=== PATIENT | female | born 1940 | race Caucasian/White ===

== ENCOUNTER → 2018-03-24 12:28 | Outpatient (CLI) | payer OTHER, SELFPAY ==
--- NOTE | 2018-03-24 | DI.MG.S_ITS ---
BILATERAL DIGITAL SCREENING MAMMOGRAM 3D/2D WITH CAD: 03/24/2018 CLINICAL: Routine screening. Comparison is made to exams dated: 02/01/2017 mammogram, 01/28/2016 mammogram, and 01/24/2015 mammogram - [facility]. The tissue of both breasts is heterogeneously dense. This may lower the sensitivity of mammography. Current study was also evaluated with a Computer Aided Detection (CAD) system. There are benign vascular calcifications and calcifications in both breasts. No significant masses, calcifications, or other findings are seen in either breast. There has been no significant interval change. IMPRESSION: BENIGN There is no mammographic evidence of malignancy. A 1 year screening mammogram is recommended. This exam was interpreted at Station ID: [id number]. NOTE: For mammograms, a report in lay terms will be sent to the patient. Approximately 15% of breast malignancies will not be visualized mammographically. In the management of a palpable breast mass, a negative mammogram must not discourage biopsy of a clinically suspicious lesion. Electronically Signed By: Gregoria cowart/eris:03/24/2018 14:53:12 letter sent: Normal Exam ACR BI-RADS Category 2: Benign Finding(s) 3342F
== END ==
PROVIDERS: Visit Provider Student in an Organized Health Care Education/Training Program
DX: Z12.31 Encounter for screening mammogram for malignant neoplasm of breast (principal); Z78.0 Asymptomatic menopausal state; E07.9 Disorder of thyroid, unspecified; Z82.62 Family history of osteoporosis; Z90.722 Acquired absence of ovaries, bilateral
CPT/HCPCS: 77063; 77067; 77080

== ENCOUNTER 2018-07-18 07:14 | Day surgery (SDC) | payer OTHER, SELFPAY ==
--- NOTE | 2018-07-18 | PATH_ITS ---
[facility] Accession Number: [id number] . 01 Material submitted: . PART A: TRANSVERSE COLON POLYP AT 65CM PART B: SIGMOID COLON POLYP AT 18CM PART C: RECTAL POLYP AT 12CM . 02 Diagnosis: A. Transverse Colon Polyp at 65 cm: Tubular adenoma. . B. Sigmoid Colon Polyp at 18 cm: Hyperplastic polyp. . C. Rectal Polyp at 12 cm: Hyperplastic polyp. MRV/07/19/2018 . 02 Electronically signed: . Calvin Alvarez MD, PhD, Pathologist NPI- [id number] . 01 Gross description: . Received three formalin-filled containers each labeled with the patient's name. . A. In a container labeled transverse colon polyp at 65 cm, the specimen consists of two 0.1 to 0.3 cm portions of tissue. Entirely submitted in cassette A. B. In a container labeled sigmoid polyp at 18 cm, the specimen consists of two 0.2 to 0.3 cm portions of tissue. Entirely submitted in cassette B. C. In a container labeled rectal polyp at 12 cm, the specimen consists of two 0.1 to 0.3 cm portions of tissue. Entirely submitted in cassette C. ([facility]:[id number]) /[facility] . 02 Pathologist provided ICD-10: D12.3, K62.1 . 02 CPT . 245778, 766418, 690040 Performed at: 01 [facility] [address], [place], [place] [id number] MD Eduard Marin MD Phone: [phone] Performed at: [facility] [address] [place], [place] [id number] MD Michelle Chakraborty MD Phone: [phone]
[2018-07-18 08:04] VITALS: BP 162/83; PULSE 81; RESP 20; TEMP 36.9; O2SAT 98; BMI 25.7
[2018-07-18] MEDS: SODIUM CHLORIDE 0.9% 1,000 ML 200 ML IV (08:10)
[2018-07-18] MEDS: ONDANSETRON 4 MG/2 ML INJ IV (08:15)
--- NOTE | 2018-07-18 08:20 | PM.HP.1 ---
History of Present Illness Date Patient Seen: 07/18/18 Time Patient Seen: 08:20 Chief complaint: colonoscopy 16130 Narrative: 77-year-old female with personal history of colon polyps who presents for colorectal screening. It has been over 5 years since her last examination. On further history today she denies any current gastrointestinal symptoms. No nausea, vomiting, loss of appetite, unexplained weight loss, abdominal pain, change in bowel habits, diarrhea, constipation, melena, hematochezia, or bright red blood per rectum. Patient History Medical History Anxiety (Acute) History of hysterectomy (Acute) Hyperlipidemia (Acute) Hypertension (Acute) Hypothyroidism (Acute) Osteoarthritis (Acute) Personal history of colonic polyps (Acute) Type 2 diabetes mellitus (Acute) Surgical History History of colonoscopy (Acute) History of foot surgery (Acute) History of tonsillectomy (Acute) Family & Social History Family History: Reviewed 07/18/18 by Gianfranco Mitchell MD Social History: household members spouse Meds Home Medications Medication Instructions Recorded Confirmed Type alprazolam 0.5 mg PO BID PRN 07/18/18 07/18/18 History levothyroxine 25 mcg PO DAILY 07/18/18 07/18/18 History losartan-hydrochlorothiazide 1 tab PO DAILY 07/18/18 07/18/18 History metformin 500 mg PO BID 07/18/18 07/18/18 History metoprolol succinate 25 mg PO DAILY 07/18/18 07/18/18 History rosuvastatin 40 mg PO DAILY 07/18/18 07/18/18 History Allergies Allergy/AdvReac Type Severity Reaction Status Date / Time codeine AdvReac Intermediate Agitated Verified 07/18/18 07:59 Review of Systems Review of Systems Of note, all of her medications are reviewed and placed on the chart per nursing staff. All systems reviewed & are unremarkable except as noted in HPI and below Exam Vital Signs (past 8 hours): - 07/18/18 08:04 Temperature 98.5 F Pulse Rate 81 Respiratory Rate 20 Blood Pressure 162/83 H Pulse Oximetry 98 Oxygen Delivery Method Room Air Narrative Exam Narrative: Well-nourished well-developed female in no acute distress. Alert oriented x3 Sclera nonicteric Regular rate rhythm Abdomen soft, nondistended, nontender Extremities show no clubbing or cyanosis Objective Labs Labs: No recent laboratory or radiographic studies for review Assessment & Plan Plan: Assessment/Plan Narrative: 77-year-old female with personal history of colon polyps requiring surveillance for such. Colonoscopy is recommended. Technical details of the procedure were explained. Risks, benefits, alternatives were discussed. Risks including but not limited to sedation, aspiration, bleeding, pain, missed lesion, incomplete examination, need for further radiographic studies, colonic perforation, need for major abdominal surgery, and all attendant risks of major surgery were discussed in detail. All questions were answered to her satisfaction, and she voiced understanding. Consent was placed on the chart. We will proceed as above.
--- NOTE | 2018-07-18 08:25 | PM.PREOP ---
Pre-operative Note Interval Note History & Physical reviewed/Exam performed by Physician: Yes Changes to H&P: No H&P completed within 30 days and has changed as indicated here:: Patient seen and examined today. History and physical examination dictated and placed on the chart today. Obviously there have been no changes in the last 10 min. Proceed with colonoscopy today as planned. ASA Class (for procedural sedation): II
[2018-07-18] MEDS: MIDAZOLAM 5 MG/5 ML VIAL IV (08:31)
[2018-07-18] MEDS: fentaNYL 250 MCG/5 ML INJ IV (08:32)
--- NOTE | 2018-07-18 08:53 | PM.OP.ENDO ---
Operative Date/Time/Diagnoses Date of procedure: 07/18/18 Time of procedure: 08:53 Pre-op diagnosis: Personal history of colon polyps Post-op diagnosis: other (Diverticulosis and multiple colon polyps) Procedure & Clinicians Study performed: 1. Sedation per surgeon 2. Colonoscopy with cold forceps polypectomies Same procedure as scheduled: Yes Indications: 77-year-old female with personal history of colon polyps requiring colorectal surveillance. Colonoscopy is currently recommended. Surgeon: Gianfranco Mitchell Procedure Notes SCOAP/Timeout: Yes Procedure in detail: After obtaining informed consent, the patient was brought to the GI suite and placed in the left lateral decubitus position on the examination table. After placement of appropriate monitors, the patient was given incremental doses of Versed and Fentanyl until an appropriate level of sedation was achieved. A time out was held per SCOAP protocol. A digital rectal examination was performed and did not reveal any masses or obstructing lesions. The colonoscope was gently passed into the patient's anus and the entire colon navigated to the level of the cecum with minimal difficulty. Once in the cecum, the scope was withdrawn being sure to go before and beyond all mucosal folds and prominences and get an excellent examination. The findings are noted above. At the level of the rectal vault, the scope was retroflexed and the internal anal canal was examined. The scope was straightened and air aspirated from the colon. The instrument was removed from the patient's body and the procedure was concluded. The patient was allowed to awaken from sedation without difficulty and taken to the post-anesthesia care unit in good condition. Scope withdrawal time: 8:43 min Sedation minutes: 26 Findings: diverticulosis and polyp Specimen(s): other (1. Transverse colon polyp at 65 cm 2. Sigmoid colon polyp at 18 cm 3. Rectal polyp at 12 cm) Complications: none Recommendations: Colonscopy in 5 years, High fiber diet and Will call with biopsy results Plan for aftercare: 1. Discharge home Follow up: as needed Disposition: PACU
[2018-07-18 08:58] VITALS: BP 127/64; PULSE 74; RESP 15; TEMP 36.6; O2SAT 97
[2018-07-18 09:05] VITALS: BP 117/66; PULSE 68; RESP 16; O2SAT 97
[2018-07-18 09:19] VITALS: BP 129/64; PULSE 66; RESP 16; TEMP 36.1; O2SAT 99
== END 2018-07-18 09:32 | disposition home or self-care (01) ==
PROVIDERS: PCP Student in an Organized Health Care Education/Training Program; Visit Provider Surgery
PROC: 0DJD8ZZ Inspection of Lower Intestinal Tract, Via Natural or Artificial Opening Endoscopic (ICD-10-PCS; CPT 45378; principal; 2018-07-18 08:45)
DX: Z86.010 Personal history of colon polyps (principal); K57.30 Diverticulosis of large intestine without perforation or abscess without bleeding; F41.9 Anxiety disorder, unspecified; E78.5 Hyperlipidemia, unspecified; I10 Essential (primary) hypertension; E03.9 Hypothyroidism, unspecified; E11.9 Type 2 diabetes mellitus without complications; Z79.84 Long term (current) use of oral hypoglycemic drugs; D12.3 Benign neoplasm of transverse colon; K62.1 Rectal polyp; D12.5 Benign neoplasm of sigmoid colon
CPT/HCPCS: 45380; 99152; 99153; J2250; J2405; J3010

== ENCOUNTER → 2018-08-10 13:11 | Outpatient (CLI) | payer OTHER, SELFPAY ==
[2018-08-10 13:28] LABS: Add Manual Diff / Slide Review NO; Basophils Absolute Auto 100 /uL (0-100); Basophils Percent Auto 0.9 % (0-2); Eosinophils Absolute Auto 200 /uL (0-450); Eosinophils Percent Auto 2.3 % (2-4); Hematocrit 40.1 % (36-46); Hemoglobin 13.6 g/dL (12.0-16.0); Lymphocytes Absolute Auto 1400 /uL (1100-4500); Lymphocytes Percent Auto 20.9 % (25-40); Mean Corpuscular HGB Conc 33.8 % (30-36); Mean Corpuscular Hemoglobin 29.3 PG (26-34); Mean Corpuscular Volume 86.6 fL (80-100); Monocytes Absolute Auto 500 /uL (0-900); Monocytes Percent Auto 7.5 % (3-14); Neutrophils Absolute Auto 4600 /uL (1500-7000); Neutrophils Percent Auto 68.4 % (50-75); Platelet Count 221 X10^3/uL (150-400); Red Blood Cell Count 4.63 X10^6/uL (4.0-5.2); Red Cell Distribution Width 14.9 % (11.6-14.8); White Blood Cell Count 6.7 X10^3/uL (4.5-11.0)
[2018-08-10 13:49] LABS: Alanine Aminotransferase 31 IU/L (9-52); Albumin 4.9 g/dL (3.5-5.0); Albumin Globulin Ratio 1.4 (1.0-2.8); Alkaline Phosphatase 47 U/L (38-126); Aspartate Aminotransferase 38 IU/L (14-36); BUN Creatinine Ratio 27.5 (6-22); Bilirubin Total 0.4 mg/dL (0.2-1.3); Blood Urea Nitrogen 22 mg/dL (7-17); Calcium 10.5 mg/dL (8.4-10.2); Carbon Dioxide 28 mmol/L (22-32); Chloride 95 mmol/L (98-107); Estimated Glomerular Filt Rate > 60.0 mL/min (>60); Globulin 3.5 g/dL (1.7-4.1); Glucose 123 mg/dL (80-110); HEMOLYSIS 25 (0-50); Potassium 4.2 mmol/L (3.4-5.1); Sodium 137 mmol/L (137-145); Total Protein 8.4 g/dL (6.3-8.2)
[2018-08-10 13:51] LABS: Hemoglobin A1C% w Est Avg Glu 5.7 % (4.0-6.0)
== END ==
PROVIDERS: PCP Student in an Organized Health Care Education/Training Program; Visit Provider Student in an Organized Health Care Education/Training Program
DX: I10 Essential (primary) hypertension (principal); E78.5 Hyperlipidemia, unspecified; E03.9 Hypothyroidism, unspecified; E11.9 Type 2 diabetes mellitus without complications
CPT/HCPCS: 36415; 80053; 83036; 85025

== ENCOUNTER 2018-09-11 06:39 | Emergency (ER) | payer OTHER, SELFPAY ==
[2018-09-11] VITALS (7 sets, daily range): BP systolic 115–148; BP diastolic 55–63; PULSE 63–74; RESP 15–17; TEMP 37.1; O2SAT 97–99; BMI 26.1
--- NOTE | 2018-09-11 06:46 | DI.CT.S_ITS ---
PROCEDURE: CT HEAD/BRAIN WO CON INDICATIONS: fall with head injury, +LOC, large lac TECHNIQUE: Noncontrast 4.5 mm thick angled axial sections acquired from the foramen magnum to the vertex, with coronal and sagittal reformats. For radiation dose reduction, the following was used: automated exposure control, adjustment of mA and/or kV according to patient size. COMPARISON: None. FINDINGS: Image quality: Excellent. CSF spaces: Basal cisterns are patent. No extra-axial fluid collections. Ventricles are normal in size and shape. Brain: No midline shift. No intracranial masses or hemorrhage. Torres-white matter interface is normal. There is age-related fine loss and mild small vessel ischemic change. Skull and face: Calvarium and visualized facial bones are intact, without suspicious lesions. No displaced skull fractures. Right frontotemporal skin judy. Sinuses: Visualized sinuses and mastoids are clear. IMPRESSION: 1. No evidence of acute stroke, hemorrhage, or mass. 2. Mild small vessel ischemic change. Dictated by: Ming Chery M.D. on 09/11/2018 at 7:31 Approved by: Ming Chery M.D. on 09/11/2018 at 7:34
[2018-09-11 07:15] LABS: Add Manual Diff / Slide Review NO; Basophils Absolute Auto 100 /uL (0-100); Basophils Percent Auto 0.5 % (0-2); Eosinophils Absolute Auto 100 /uL (0-450); Eosinophils Percent Auto 0.9 % (2-4); Hematocrit 39.8 % (36-46); Hemoglobin 13.3 g/dL (12.0-16.0); Lymphocytes Absolute Auto 900 /uL (1100-4500); Lymphocytes Percent Auto 8.2 % (25-40); Mean Corpuscular HGB Conc 33.4 % (30-36); Mean Corpuscular Hemoglobin 29.3 PG (26-34); Mean Corpuscular Volume 87.6 fL (80-100); Monocytes Absolute Auto 500 /uL (0-900); Monocytes Percent Auto 4.8 % (3-14); Neutrophils Absolute Auto 9400 /uL (1500-7000); Neutrophils Percent Auto 85.6 % (50-75); Platelet Count 188 X10^3/uL (150-400); Red Blood Cell Count 4.55 X10^6/uL (4.0-5.2); Red Cell Distribution Width 14.7 % (11.6-14.8)
--- NOTE | 2018-09-11 07:16 | PC.NURSE ---
head laceration was already stapled when I did my assessment.
[2018-09-11 07:28] LABS: BUN Creatinine Ratio 26.3 (6-22); Blood Urea Nitrogen 21 mg/dL (7-17); Calcium 9.8 mg/dL (8.4-10.2); Carbon Dioxide 30 mmol/L (22-32); Chloride 97 mmol/L (98-107); Estimated Glomerular Filt Rate > 60.0 mL/min (>60); Glucose 122 mg/dL (80-110); HEMOLYSIS < 15 (0-50); Potassium 2.9 mmol/L (3.4-5.1); Sodium 135 mmol/L (137-145)
[2018-09-11 07:40] LABS: Troponin I < 0.012 ng/mL (0.01-0.034)
--- NOTE | 2018-09-11 07:49 | PC.NURSE ---
pt needed standby assist only. She reports feeling a little dizzy but was steady on her feet.
[2018-09-11] MEDS: SODIUM CHLORIDE 0.9% 1,000 ML 1000 ML IV (08:39)
--- NOTE | 2018-09-11 09:00 | ED.FALL ---
HPI - Fall General Chief Complaint: Fall Stated Complaint: GLF with laceration to back of head Time Seen by Provider: 09/11/18 07:56 Source: patient Mode of arrival: ambulatory Limitations: no limitations History of Present Illness HPI Narrative: Patient states that she got up this morning to go to the bathroom and noticed that she felt dizzy . Patient qualifies this as being a vertigo-type of sensation more than lightheadedness. She states that she got on the toilet and got up quickly after finishing. Patient states that when she got up she felt very dizzy and next thing she knew, she was on the floor. However, patient states she does not think that she lost consciousness. Patient states she believe she hit her head on the door handle of the bathroom cabinet, and did sustain a laceration. Patient states that she does not have any chest pain or shortness of breath the time. No nausea. No vomiting. Patient does note that she had an episode of diarrhea while lying on the floor, and also states that she has had a couple more episodes since being here in the emergency department. Patient also notes that 2 family members have had a diarrheal illness in the last couple of days and she has been recently exposed to them while they were sick. Patient was ultimately able to get up with assistance and walk again, but EMS was called. Patient states that since the incident, she is no longer felt dizzy, but did feel a little shaky when she defecated here. She denies any visual changes. No focal weakness. Patient does not have a history of vertigo or loss of consciousness. She states she is quite healthy otherwise. No palpitations currently. No recent illnesses. No other complaints at this time. Related Data Home Medications Medication Instructions Recorded Confirmed alprazolam 0.5 mg PO BID PRN 07/18/18 07/18/18 levothyroxine 25 mcg PO DAILY 07/18/18 07/18/18 losartan-hydrochlorothiazide 1 tab PO DAILY 07/18/18 07/18/18 metformin 500 mg PO BID 07/18/18 07/18/18 metoprolol succinate 25 mg PO DAILY 07/18/18 07/18/18 rosuvastatin 40 mg PO DAILY 07/18/18 07/18/18 Allergies Allergy/AdvReac Type Severity Reaction Status Date / Time codeine AdvReac Intermediate Agitated Verified 07/18/18 07:59 Review of Systems Constitutional Denies chills, Denies fever(s), Denies lethargy and Denies weakness Eyes Denies change in vision, Denies eye discharge, Denies irritation and Denies loss of vision ENT Ears, Nose, Mouth, and Throat: Denies change in voice, Reports dizziness, Denies neck pain and Denies sore throat Cardiovascular Denies chest pain, Reports syncope (Near), Denies irregular heart rhythm, Denies lightheadedness, Denies palpitations, Denies dyspnea, Denies dyspnea on exertion and Denies orthopnea Respiratory Denies cough, Denies dyspnea, Denies dyspnea on exertion and Denies wheezing Gastrointestinal Gastrointestinal: Denies abdominal pain, Denies change in bowel habits, Denies diarrhea, Denies nausea and Denies vomiting Genitourinary Denies hematuria, Denies flank pain, Denies urinary incontinence and Denies urinary urgency Musculoskeletal Denies neck pain Integumentary/Breasts Denies pruritus, Denies erythema, Denies rash and Denies wounds Neurologic Denies confusion, Reports dizziness, Reports syncope (Near), Denies loss of vision and Denies weakness Psychiatric Denies anxiety, Denies confusion, Denies depression, Denies homicidal ideation and Denies suicidal ideation Endocrine Denies palpitations Hematologic/Lymphatic Denies easy bruising Allergic/Immunologic Denies wheezing Exam Initial Vital Signs Initial Vital Signs: Vital Signs Temperature 98.7 F 09/11/18 06:42 Pulse Rate 74 09/11/18 06:42 Respiratory Rate 16 09/11/18 06:42 Blood Pressure 143/63 H 09/11/18 06:42 Pulse Oximetry 97 09/11/18 06:42 Const General: cooperative and well developed Nutritional Appearance: well nourished Orientation: alert, awake, oriented x3 and not confused [facility] Head: normocephalic, laceration (Three in a 0.5 cm, bleeding controlled, right parietal area) and No palpable skull fracture Ears: external ears normal Nose: external nose normal and No nasal discharge Face and sinus: sinuses nontender, face symmetric, no sinus tenderness and No dry mucous membranes Mouth: oral mucosae normal and moist mucous membranes Teeth and gingiva: dentition normal Eyes General: appearance normal, both eyes and all related structures Eyelids: eyelids normal Conjunctivae: conjunctivae normal Sclera: sclerae normal Pupils: PERRL EOM: EOM intact bilaterally Neck Neck: normal visual inspection, trachea midline, No lymphadenopathy, No midline deformity and No JVD Lymphatic: No lymphedema Chest Chest: normal inspection of the chest Resp Effort & Inspection: normal respiratory effort, able to speak in complete sentences, no respiratory distress and no use of accessory muscles Auscultation: clear to auscultation bilaterally, no rales, no rhonchi and no wheezes Cardio Rate: regular rate Rhythm: regular rhythm Heart Sounds: no click, no gallops, no murmurs and no rubs Pulses: normal peripheral pulses GI Inspection: non-distended Palpation: soft, no hepatosplenomegaly, No guarding, No pulsatile mass and No tender Auscultation: normal bowel sounds Back/Spine/Pelvis Back: No CVA tenderness Cervical Spine: cervical ROM normal and No pain with cervical ROM Thoracic/Lumbar Spine: thoracic and lumbar spine normal to inspection Skin General: no rashes or lesions noted, No jaundice and No petechiae Neuro General: alert, oriented x3, gait normal and no focal motor deficits Speech: speech normal Extrem General: full ROM, no clubbing, cyanosis or edema, no pedal edema and no calf tenderness Psych Appearance: well kempt Mental Status: mental status grossly normal Attitude: cooperative Thought Content: normal and suicidality Judgment: judgment good [facility] Medical History Anxiety (Acute) History of hysterectomy (Acute) Hyperlipidemia (Acute) Hypertension (Acute) Hypothyroidism (Acute) Osteoarthritis (Acute) Personal history of colonic polyps (Acute) Type 2 diabetes mellitus (Acute) Surgical History History of colonoscopy (Acute) History of foot surgery (Acute) History of tonsillectomy (Acute) Social History household members: spouse Social History household members: spouse Procedures Laceration Repair Laceration 1: Site: scalp Size (cm): 3.5 Description: linear Depth: simple, single layer Local Anesthetic: lidocaine 1% Pre-repair: wound explored, irrigated extensively and deep structures intact Skin layer closed with: judy Number of sutures: 6 Course Course Narrative: Patient was initially seen by Dr. Live Allen and signed out to me, pending re-evaluation and results of workup. I did interview and fully examine the patient. Patient was worked up with labs, including cardiac, EKG, and CT scan, all of which were unremarkable. She was given L of 0.9 normal saline, and reported feeling better in the emergency department. She did not have any further episodes of dizziness. I felt the most likely cause of the patient's symptoms today was the onset of the patient's GI illness, with which she has had number of episodes of diarrhea. We have discussed the need to be aggressive with hydration while she is ill with this. I discussed the potential implications of the symptoms, as well as potential concerns, should patient have further symptoms like this. We have discussed the usual indications for return, as well as the need for follow-up. Patient is doing well in the emergency department, and is stable for discharge home at this time. She is accompanied by her . Orders Ordered: Discontinued Medications Sodium Chloride (Normal Saline 0.9%) 1,000 mls @ 1,000 mls/hr IV BOLUS ONE Stop: 09/11/18 09:36 Last Infusion: 09/11/18 09:47 Dose: 0 mls/hr Admin: 09/11/18 08:39 Dose: 1,000 mls/hr Vital Signs - 8 hr 09/11/18 06:42 09/11/18 07:00 09/11/18 07:45 Temperature 98.7 F Pulse Rate 74 73 72 Respiratory Rate 16 15 17 Blood Pressure 143/63 H Blood Pressure [Right Arm] 135/56 L 142/62 H Pulse Oximetry 97 98 99 09/11/18 08:00 Temperature Pulse Rate 70 Respiratory Rate 17 Blood Pressure Blood Pressure [Right Arm] 148/59 H Pulse Oximetry 98 MDM - Fall Medical Records Attestation: I reviewed the patient's medical records. Lab Data Attestation: I reviewed the patient's lab results. Result diagrams: 09/11/18 07:07 09/11/18 07:07 Lab Results 09/11/18 09/11/18 Range/Units 07:07 07:07 WBC 11.0 (4.5-11.0) X10^3/uL RBC 4.55 (4.0-5.2) X10^6/uL Hgb 13.3 (12.0-16.0) g/dL Hct 39.8 (36-46) % MCV 87.6 (80-100) fL MCH 29.3 (26-34) PG MCHC 33.4 (30-36) % RDW 14.7 (11.6-14.8) % Plt Count 188 (150-400) X10^3/uL Neut % (Auto) 85.6 H (50-75) % Lymph % (Auto) 8.2 L (25-40) % [place] % (Auto) 4.8 (3-14) % Eos % (Auto) 0.9 L (2-4) % Baso % (Auto) 0.5 (0-2) % Neut # (Auto) 9400 H (0169-2522) /uL Lymph # (Auto) 900 L (2291-1927) /uL [place] # (Auto) 500 (0-900) /uL Eos # (Auto) 100 (0-450) /uL Baso # (Auto) 100 (0-100) /uL Sodium 135 L (137-145) mmol/L Potassium 2.9 L (3.4-5.1) mmol/L Chloride 97 L (98-107) mmol/L Carbon Dioxide 30 (22-32) mmol/L BUN 21 H (7-17) mg/dL Creatinine 0.80 (0.52-1.04) mg/dL Estimated GFR > 60.0 (>60) mL/min BUN/Creatinine Ratio 26.3 H (6-22) Glucose 122 H (80-110) mg/dL Calcium 9.8 (8.4-10.2) mg/dL Troponin I < 0.012 (0.01-0.034) ng/mL Imaging Data CT scan - head: Attestation: I personally reviewed and interpreted this imaging study as follows: (No acute pathology) Radiologist's impression: [address] [address] [address] Scan Report Signed Patient: Lidia Alfonso [facility]#: [id number] : 3Acct:[id number] Age/Sex: 78 / FDate of Service: 09/11/18 Loc: ED Accession Number: [id number] Procedure: CT head/brain wo con Ordering Provider: Live Allen D.O. PROCEDURE: CT HEAD/BRAIN WO CON INDICATIONS: fall with head injury, +LOC, large lac TECHNIQUE: Noncontrast 4.5 mm thick angled axial sections acquired from the foramen magnum to the vertex, with coronal and sagittal reformats. For radiation dose reduction, the following was used: automated exposure control, adjustment of mA and/or kV according to patient size. COMPARISON: None. FINDINGS: Image quality: Excellent. CSF spaces: Basal cisterns are patent. No extra-axial fluid collections. Ventricles are normal in size and shape. Brain: No midline shift. No intracranial masses or hemorrhage. Torres-white matter interface is normal. There is age-related fine loss and mild small vessel ischemic change. Skull and face: Calvarium and visualized facial bones are intact, without suspicious lesions. No displaced skull fractures. Right frontotemporal skin judy. Sinuses: Visualized sinuses and mastoids are clear. IMPRESSION: 1. No evidence of acute stroke, hemorrhage, or mass. 2. Mild small vessel ischemic change. Dictated by: Ming Chery M.D. on 09/11/2018 at 7:31 Approved by: Ming Chery M.D. on 09/11/2018 at 7:34 ECG Data Attestation: I personally reviewed and interpreted this ECG as follows: (See below) Interpretation: Twelve lead EKG performed September 11, 2018 at 6:52 a.m., as follows: Regular ventricular rhythm with a rate of 72 beats per minute QRS duration 118 millisecond HI interval 225 millisecond QTC interval [address] T wave changes Interpretation: Sinus rhythm with first-degree AV block and occasional PVCs; moderate intraventricular conduction delay; moderate ST depression; prolonged QT interval; no STEMI; abnormal EKG as interpreted the ED MD Discharge Plan Departure Patient Disposition: Home Clinical Impression: Dizziness Syncope Qualifiers: Syncope type: unspecified Qualified Code(s): R55 - Syncope and collapse CHI (closed head injury) Qualifiers: Encounter type: initial encounter Qualified Code(s): S09.90XA - Unspecified injury of head, initial encounter Diarrhea Qualifiers: Diarrhea type: unspecified type Qualified Code(s): R19.7 - Diarrhea, unspecified Discharge Date/Time: 09/11/18 09:47 Interventions: ED Discharge Assessment Last Done: 09/11/18 09:46 Instructions: DI for Syncope in Adults (Fainting), DI for Diarrhea and Traveler's Diarrhea -- Adult, DI for Closed Head Injury, DI for Dizziness-Nonvertigo Prescriptions: No Action metformin 500 mg Tablet 500 mg PO BID RF: 0 levothyroxine 25 mcg Tablet 25 mcg PO DAILY RF: 0 losartan-hydrochlorothiazide 100-25 mg Tablet 1 tab PO DAILY RF: 0 alprazolam 0.5 mg Tablet 0.5 mg PO BID PRN (Reason: Anxiety) RF: 0 rosuvastatin 40 mg Tablet 40 mg PO DAILY RF: 0 metoprolol succinate 25 mg CapRamirez,Er 24hr Dose Pack 25 mg PO DAILY RF: 0 Referrals: Lo Hall PA-C [Primary Care Provider] -
--- NOTE | 2018-09-11 09:09 | ED_ITS ---
HPI - Fall General Chief Complaint: Fall Stated Complaint: GLF with laceration to back of head Time Seen by Provider: 09/11/18 07:56 Source: patient Mode of arrival: ambulatory Limitations: no limitations History of Present Illness HPI Narrative: Patient states that she got up this morning to go to the bathroom and noticed that she felt dizzy . Patient qualifies this as being a vertigo- type of sensation more than lightheadedness. She states that she got on the toilet and got up quickly after finishing. Patient states that when she got up she felt very dizzy and next thing she knew, she was on the floor. However, patient states she does not think that she lost consciousness. Patient states she believe she hit her head on the door handle of the bathroom cabinet, and did sustain a laceration. Patient states that she does not have any chest pain or shortness of breath the time. No nausea. No vomiting. Patient does note that she had an episode of diarrhea while lying on the floor, and also states that she has had a couple more episodes since being here in the emergency department. Patient also notes that 2 family members have had a diarrheal illness in the last couple of days and she has been recently exposed to them while they were sick. Patient was ultimately able to get up with assistance and walk again, but EMS was called. Patient states that since the incident, she is no longer felt dizzy, but did feel a little shaky when she defecated here. She denies any visual changes. No focal weakness. Patient does not have a history of vertigo or loss of consciousness. She states she is quite healthy otherwise. No palpitations currently. No recent illnesses. No other complaints at this time. Related Data Home Medications Medication Instructions Recorded Confirmed alprazolam 0.5 mg PO BID PRN 07/18/18 07/18/18 levothyroxine 25 mcg PO DAILY 07/18/18 07/18/18 losartan-hydrochlorothiazide 1 tab PO DAILY 07/18/18 07/18/18 metformin 500 mg PO BID 07/18/18 07/18/18 metoprolol succinate 25 mg PO DAILY 07/18/18 07/18/18 rosuvastatin 40 mg PO DAILY 07/18/18 07/18/18 Allergies Allergy/AdvReac Type Severity Reaction Status Date / Time codeine AdvReac Intermediate Agitated Verified 07/18/18 07:59 Review of Systems Constitutional Denies chills, Denies fever(s), Denies lethargy and Denies weakness Eyes Denies change in vision, Denies eye discharge, Denies irritation and Denies loss of vision ENT Ears, Nose, Mouth, and Throat: Denies change in voice, Reports dizziness, Denies neck pain and Denies sore throat Cardiovascular Denies chest pain, Reports syncope (Near), Denies irregular heart rhythm, Denies lightheadedness, Denies palpitations, Denies dyspnea, Denies dyspnea on exertion and Denies orthopnea Respiratory Denies cough, Denies dyspnea, Denies dyspnea on exertion and Denies wheezing Gastrointestinal Gastrointestinal: Denies abdominal pain, Denies change in bowel habits, Denies diarrhea, Denies nausea and Denies vomiting Genitourinary Denies hematuria, Denies flank pain, Denies urinary incontinence and Denies urinary urgency Musculoskeletal Denies neck pain Integumentary/Breasts Denies pruritus, Denies erythema, Denies rash and Denies wounds Neurologic Denies confusion, Reports dizziness, Reports syncope (Near), Denies loss of vision and Denies weakness Psychiatric Denies anxiety, Denies confusion, Denies depression, Denies homicidal ideation and Denies suicidal ideation Endocrine Denies palpitations Hematologic/Lymphatic Denies easy bruising Allergic/Immunologic Denies wheezing Exam Initial Vital Signs Initial Vital Signs: Vital Signs Temperature 98.7 F 09/11/18 06:42 Pulse Rate 74 09/11/18 06:42 Respiratory Rate 16 09/11/18 06:42 Blood Pressure 143/63 H 09/11/18 06:42 Pulse Oximetry 97 09/11/18 06:42 Const General: cooperative and well developed Nutritional Appearance: well nourished Orientation: alert, awake, oriented x3 and not confused [facility] Head: normocephalic, laceration (Three in a 0.5 cm, bleeding controlled, right parietal area) and No palpable skull fracture Ears: external ears normal Nose: external nose normal and No nasal discharge Face and sinus: sinuses nontender, face symmetric, no sinus tenderness and No dry mucous membranes Mouth: oral mucosae normal and moist mucous membranes Teeth and gingiva: dentition normal Eyes General: appearance normal, both eyes and all related structures Eyelids: eyelids normal Conjunctivae: conjunctivae normal Sclera: sclerae normal Pupils: PERRL EOM: EOM intact bilaterally Neck Neck: normal visual inspection, trachea midline, No lymphadenopathy, No midline deformity and No JVD Lymphatic: No lymphedema Chest Chest: normal inspection of the chest Resp Effort & Inspection: normal respiratory effort, able to speak in complete sentences, no respiratory distress and no use of accessory muscles Auscultation: clear to auscultation bilaterally, no rales, no rhonchi and no wheezes Cardio Rate: regular rate Rhythm: regular rhythm Heart Sounds: no click, no gallops, no murmurs and no rubs Pulses: normal peripheral pulses GI Inspection: non-distended Palpation: soft, no hepatosplenomegaly, No guarding, No pulsatile mass and No tender Auscultation: normal bowel sounds Back/Spine/Pelvis Back: No CVA tenderness Cervical Spine: cervical ROM normal and No pain with cervical ROM Thoracic/Lumbar Spine: thoracic and lumbar spine normal to inspection Skin General: no rashes or lesions noted, No jaundice and No petechiae Neuro General: alert, oriented x3, gait normal and no focal motor deficits Speech: speech normal Extrem General: full ROM, no clubbing, cyanosis or edema, no pedal edema and no calf tenderness Psych Appearance: well kempt Mental Status: mental status grossly normal Attitude: cooperative Thought Content: normal and suicidality Judgment: judgment good [facility] Medical History Anxiety (Acute) History of hysterectomy (Acute) Hyperlipidemia (Acute) Hypertension (Acute) Hypothyroidism (Acute) Osteoarthritis (Acute) Personal history of colonic polyps (Acute) Type 2 diabetes mellitus (Acute) Surgical History History of colonoscopy (Acute) History of foot surgery (Acute) History of tonsillectomy (Acute) Social History household members: spouse Social History household members: spouse Procedures Laceration Repair Laceration 1: Site: scalp Size (cm): 3.5 Description: linear Depth: simple, single layer Local Anesthetic: lidocaine 1% Pre-repair: wound explored, irrigated extensively and deep structures intact Skin layer closed with: judy Number of sutures: 6 Course Course Narrative: Patient was initially seen by Dr. Live Allen and signed out to me, pending re-evaluation and results of workup. I did interview and fully examine the patient. Patient was worked up with labs, including cardiac, EKG, and CT scan, all of which were unremarkable. She was given L of 0.9 normal saline, and reported feeling better in the emergency department. She did not have any further episodes of dizziness. I felt the most likely cause of the patient's symptoms today was the onset of the patient's GI illness, with which she has had number of episodes of diarrhea. We have discussed the need to be aggressive with hydration while she is ill with this. I discussed the potential implications of the symptoms, as well as potential concerns, should patient have further symptoms like this. We have discussed the usual indications for return, as well as the need for follow-up. Patient is doing well in the emergency department, and is stable for discharge home at this time. She is accompanied by her . Orders Ordered: Discontinued Medications Sodium Chloride (Normal Saline 0.9%) 1,000 mls @ 1,000 mls/hr IV BOLUS ONE Stop: 09/11/18 09:36 Last Infusion: 09/11/18 09:47 Dose: 0 mls/hr Admin: 09/11/18 08:39 Dose: 1,000 mls/hr Vital Signs - 8 hr 09/11/18 06:42 09/11/18 07:00 09/11/18 07:45 Temperature 98.7 F Pulse Rate 74 73 72 Respiratory Rate 16 15 17 Blood Pressure 143/63 H Blood Pressure [Right Arm] 135/56 L 142/62 H Pulse Oximetry 97 98 99 09/11/18 08:00 Temperature Pulse Rate 70 Respiratory Rate 17 Blood Pressure Blood Pressure [Right Arm] 148/59 H Pulse Oximetry 98 MDM - Fall Medical Records Attestation: I reviewed the patient's medical records. Lab Data Attestation: I reviewed the patient's lab results. Result diagrams: 09/11/18 07:07 09/11/18 07:07 Lab Results 09/11/18 09/11/18 Range/Units 07:07 07:07 WBC 11.0 (4.5-11.0) X10^3/uL RBC 4.55 (4.0-5.2) X10^6/uL Hgb 13.3 (12.0-16.0) g/dL Hct 39.8 (36-46) % MCV 87.6 (80-100) fL MCH 29.3 (26-34) PG MCHC 33.4 (30-36) % RDW 14.7 (11.6-14.8) % Plt Count 188 (150-400) X10^3/uL Neut % (Auto) 85.6 H (50-75) % Lymph % (Auto) 8.2 L (25-40) % Huntington % (Auto) 4.8 (3-14) % Eos % (Auto) 0.9 L (2-4) % Baso % (Auto) 0.5 (0-2) % Neut # (Auto) 9400 H (5517-0746) /uL Lymph # (Auto) 900 L (1042-7940) /uL Huntington # (Auto) 500 (0-900) /uL Eos # (Auto) 100 (0-450) /uL Baso # (Auto) 100 (0-100) /uL Sodium 135 L (137-145) mmol/L Potassium 2.9 L (3.4-5.1) mmol/L Chloride 97 L (98-107) mmol/L Carbon Dioxide 30 (22-32) mmol/L BUN 21 H (7-17) mg/dL Creatinine 0.80 (0.52-1.04) mg/dL Estimated GFR > 60.0 (>60) mL/min BUN/Creatinine Ratio 26.3 H (6-22) Glucose 122 H (80-110) mg/dL Calcium 9.8 (8.4-10.2) mg/dL Troponin I < 0.012 (0.01-0.034) ng/mL Imaging Data CT scan - head: Attestation: I personally reviewed and interpreted this imaging study as follows: (No acute pathology) Radiologist's impression: [address] [address] [address] Scan Report Signed Patient: Lidia Alfonso [facility]#: [id number] : 3Acct:[id number] Age/Sex: 78 / FDate of Service: 09/11/18 Loc: ED Accession Number: [id number] Procedure: CT head/brain wo con Ordering Provider: Live Allen D.O. PROCEDURE: CT HEAD/BRAIN WO CON INDICATIONS: fall with head injury, +LOC, large lac TECHNIQUE: Noncontrast 4.5 mm thick angled axial sections acquired from the foramen magnum to the vertex, with coronal and sagittal reformats. For radiation dose reduction, the following was used: automated exposure control, adjustment of mA and/or kV according to patient size. COMPARISON: None. FINDINGS: Image quality: Excellent. CSF spaces: Basal cisterns are patent. No extra-axial fluid collections. Ventricles are normal in size and shape. Brain: No midline shift. No intracranial masses or hemorrhage. Torres-white matter interface is normal. There is age-related fine loss and mild small vessel ischemic change. Skull and face: Calvarium and visualized facial bones are intact, without suspicious lesions. No displaced skull fractures. Right frontotemporal skin judy. Sinuses: Visualized sinuses and mastoids are clear. IMPRESSION: 1. No evidence of acute stroke, hemorrhage, or mass. 2. Mild small vessel ischemic change. Dictated by: Ming Chery M.D. on 09/11/2018 at 7:31 Approved by: Ming Chery M.D. on 09/11/2018 at 7:34 ECG Data Attestation: I personally reviewed and interpreted this ECG as follows: (See below) Interpretation: Twelve lead EKG performed September 11, 2018 at 6:52 a.m., as follows: Regular ventricular rhythm with a rate of 72 beats per minute QRS duration 118 millisecond NJ interval 225 millisecond QTC interval [address] T wave changes Interpretation: Sinus rhythm with first-degree AV block and occasional PVCs; moderate intraventricular conduction delay; moderate ST depression; prolonged QT interval; no STEMI; abnormal EKG as interpreted the ED MD Discharge Plan Departure Patient Disposition: Home Clinical Impression: Dizziness Syncope Qualifiers: Syncope type: unspecified Qualified Code(s): R55 - Syncope and collapse CHI (closed head injury) Qualifiers: Encounter type: initial encounter Qualified Code(s): S09.90XA - Unspecified injury of head, initial encounter Diarrhea Qualifiers: Diarrhea type: unspecified type Qualified Code(s): R19.7 - Diarrhea, unspecified Discharge Date/Time: 09/11/18 09:47 Interventions: ED Discharge Assessment Last Done: 09/11/18 09:46 Instructions: DI for Syncope in Adults (Fainting), DI for Diarrhea and Traveler's Diarrhea -- Adult, DI for Closed Head Injury, DI for Dizziness- Nonvertigo Prescriptions: No Action metformin 500 mg Tablet 500 mg PO BID RF: 0 levothyroxine 25 mcg Tablet 25 mcg PO DAILY RF: 0 losartan-hydrochlorothiazide 100-25 mg Tablet 1 tab PO DAILY RF: 0 alprazolam 0.5 mg Tablet 0.5 mg PO BID PRN (Reason: Anxiety) RF: 0 rosuvastatin 40 mg Tablet 40 mg PO DAILY RF: 0 metoprolol succinate 25 mg CapRamirez,Er 24hr Dose Pack 25 mg PO DAILY RF: 0 Referrals: Lo Hall PA-C [Primary Care Provider] -
== END 2018-09-11 09:47 | disposition home or self-care (01) ==
PROVIDERS: Emergency Medicine; Emergency Provider Emergency Medicine; PCP Student in an Organized Health Care Education/Training Program
DX: S09.90XA Unspecified injury of head, initial encounter (principal); R55 Syncope and collapse; R19.7 Diarrhea, unspecified; W18.39XA Other fall on same level, initial encounter
CPT/HCPCS: 12002; 36591; 70450; 80048; 84484; 85025; 93005; 96360; 99284; 99285

== ENCOUNTER → 2018-11-17 08:34 | Outpatient (CLI) | payer OTHER, SELFPAY ==
[2018-11-17 09:41] LABS: Cholesterol 163 mg/dL (140-199); HDL Cholesterol 51 mg/dL (40-60); LDL Cholesterol Calculated 85 mg/dL (<100); Triglycerides 133 mg/dL (35-150)
[2018-11-17 10:11] LABS: Thyroid Stimulating Hormone 3.31 uIU/mL (0.47-4.68)
== END ==
PROVIDERS: PCP Student in an Organized Health Care Education/Training Program; Visit Provider Student in an Organized Health Care Education/Training Program
DX: E78.5 Hyperlipidemia, unspecified (principal); E11.9 Type 2 diabetes mellitus without complications; E03.9 Hypothyroidism, unspecified
CPT/HCPCS: 36415; 80061; 84443

== ENCOUNTER → 2019-02-08 08:56 | Outpatient (CLI) | payer OTHER, SELFPAY ==
[2019-02-08 09:51] LABS: Add Manual Diff / Slide Review NO; Basophils Absolute Auto 0 /uL (0-100); Basophils Percent Auto 0.7 % (0-2); Eosinophils Absolute Auto 200 /uL (0-450); Hematocrit 39.1 % (36-46); Hemoglobin 13.4 g/dL (12.0-16.0); Lymphocytes Absolute Auto 1300 /uL (1100-4500); Lymphocytes Percent Auto 27.8 % (25-40); Mean Corpuscular HGB Conc 34.3 % (30-36); Mean Corpuscular Hemoglobin 29.8 PG (26-34); Monocytes Absolute Auto 400 /uL (0-900); Monocytes Percent Auto 7.5 % (3-14); Neutrophils Absolute Auto 2800 /uL (1500-7000); Platelet Count 204 X10^3/uL (150-400); Red Cell Distribution Width 15.4 % (11.6-14.8); White Blood Cell Count 4.7 X10^3/uL (4.5-11.0)
[2019-02-08 09:53] LABS: Hemoglobin A1C% w Est Avg Glu 5.7 % (4.0-6.0)
[2019-02-08 10:10] LABS: Alanine Aminotransferase 13 IU/L (9-52); Albumin 4.4 g/dL (3.5-5.0); Albumin Globulin Ratio 1.4 (1.0-2.8); Alkaline Phosphatase 51 U/L (38-126); Aspartate Aminotransferase 31 IU/L (14-36); BUN Creatinine Ratio 27.5 (6-22); Bilirubin Total 0.4 mg/dL (0.2-1.3); Blood Urea Nitrogen 22 mg/dL (7-17); Calcium 10.1 mg/dL (8.4-10.2); Carbon Dioxide 30 mmol/L (22-32); Chloride 97 mmol/L (98-107); Cholesterol 155 mg/dL (140-199); Estimated Glomerular Filt Rate > 60.0 mL/min (>60); Globulin 3.2 g/dL (1.7-4.1); Glucose 112 mg/dL (80-110); HDL Cholesterol 42 mg/dL (40-60); HEMOLYSIS < 15 (0-50); LDL Cholesterol Calculated 80 mg/dL (<100); Potassium 3.5 mmol/L (3.4-5.1); Sodium 136 mmol/L (137-145); Total Protein 7.6 g/dL (6.3-8.2); Triglycerides 167 mg/dL (35-150)
== END ==
PROVIDERS: PCP Student in an Organized Health Care Education/Training Program; Visit Provider Student in an Organized Health Care Education/Training Program
DX: I10 Essential (primary) hypertension (principal); E78.5 Hyperlipidemia, unspecified; E03.9 Hypothyroidism, unspecified; E11.9 Type 2 diabetes mellitus without complications; M19.90 Unspecified osteoarthritis, unspecified site
CPT/HCPCS: 36415; 80053; 80061; 83036; 84443; 85025

== ENCOUNTER → 2019-04-04 09:48 | Outpatient (CLI) | payer OTHER, SELFPAY ==
--- NOTE | 2019-04-04 | DI.MG.S_ITS ---
BILATERAL DIGITAL SCREENING MAMMOGRAM 3D/2D WITH CAD: 04/04/2019 CLINICAL: Routine screening. Comparison is made to exams dated: 03/24/2018 mammogram - [facility], 02/01/2017 mammogram, and 01/28/2016 mammogram - [facility]. The tissue of both breasts is heterogeneously dense. This may lower the sensitivity of mammography. Current study was also evaluated with a Computer Aided Detection (CAD) system. There are benign vascular calcifications in both breasts. There also is a biopsy clip in the right breast. No significant masses, calcifications, or other findings are seen in either breast. There has been no significant interval change. IMPRESSION: There is no mammographic evidence of malignancy. A 1 year screening mammogram is recommended. This exam was interpreted at Station ID: [id number]. NOTE: For mammograms, a report in lay terms will be sent to the patient. Approximately 15% of breast malignancies will not be visualized mammographically. In the management of a palpable breast mass, a negative mammogram must not discourage biopsy of a clinically suspicious lesion. Electronically Signed By: Nuno lopez/eris:04/04/2019 16:15:40 letter sent: Normal Exam ACR BI-RADS Category 2: Benign Finding(s) 3342F
== END ==
PROVIDERS: PCP Student in an Organized Health Care Education/Training Program; Visit Provider Student in an Organized Health Care Education/Training Program
DX: Z12.31 Encounter for screening mammogram for malignant neoplasm of breast (principal)
CPT/HCPCS: 77063; 77067

== ENCOUNTER → 2019-05-19 09:12 | Outpatient (CLI) | payer OTHER, SELFPAY ==
[2019-05-19 10:07] LABS: Add Manual Diff / Slide Review NO; Basophils Absolute Auto 100 /uL (0-100); Eosinophils Absolute Auto 100 /uL (0-450); Eosinophils Percent Auto 2.4 % (2-4); Hematocrit 39.5 % (36-46); Hemoglobin 13.7 g/dL (12.0-16.0); Lymphocytes Absolute Auto 1900 /uL (1100-4500); Lymphocytes Percent Auto 32.5 % (25-40); Mean Corpuscular HGB Conc 34.7 % (30-36); Mean Corpuscular Volume 86.5 fL (80-100); Monocytes Absolute Auto 400 /uL (0-900); Monocytes Percent Auto 6.9 % (3-14); Neutrophils Absolute Auto 3400 /uL (1500-7000); Neutrophils Percent Auto 57.2 % (50-75); Platelet Count 204 X10^3/uL (150-400); Red Blood Cell Count 4.56 X10^6/uL (4.0-5.2); White Blood Cell Count 5.9 X10^3/uL (4.5-11.0)
[2019-05-19 10:17] LABS: Hemoglobin A1C% w Est Avg Glu 5.8 % (4.0-6.0)
[2019-05-19 10:23] LABS: Alanine Aminotransferase 22 IU/L (<35); Albumin 4.5 g/dL (3.5-5.0); Albumin Globulin Ratio 1.6 (1.0-2.8); Alkaline Phosphatase 58 U/L (38-126); Aspartate Aminotransferase 36 IU/L (14-36); BUN Creatinine Ratio 21.3 (6-22); Bilirubin Total 0.5 mg/dL (0.2-1.3); Blood Urea Nitrogen 17 mg/dL (7-17); Calcium 10.5 mg/dL (8.4-10.2); Carbon Dioxide 30 mmol/L (22-32); Chloride 94 mmol/L (98-107); Estimated Glomerular Filt Rate > 60.0 mL/min (>60); Globulin 2.8 g/dL (1.7-4.1); Glucose 102 mg/dL (80-110); HEMOLYSIS < 15 (0-50); Potassium 3.8 mmol/L (3.4-5.1); Sodium 134 mmol/L (137-145); Total Protein 7.3 g/dL (6.3-8.2)
== END ==
PROVIDERS: PCP Student in an Organized Health Care Education/Training Program; Visit Provider Student in an Organized Health Care Education/Training Program
DX: I10 Essential (primary) hypertension (principal); E11.9 Type 2 diabetes mellitus without complications; E78.5 Hyperlipidemia, unspecified; E03.9 Hypothyroidism, unspecified
CPT/HCPCS: 36415; 80053; 83036; 85025

== ENCOUNTER → 2019-06-06 15:31 | Outpatient (CLI) | payer OTHER, SELFPAY ==
--- NOTE | 2019-06-06 | DI.RAD.S_ITS ---
PROCEDURE: XR KNEE RT 3V INDICATIONS: OSTEOARTHRITIS KNEE TECHNIQUE: 3 views of the knee were acquired. COMPARISON: None. FINDINGS: Bones: No fractures or dislocations. Severe tricompartmental osteoarthritic changes of the right knee most severe in the medial femorotibial compartment and patellofemoral compartment. Prominent marginal osteophyte formation. No suspicious bony lesions. Soft tissues: Very small joint effusion. No suspicious soft tissue calcifications. IMPRESSION: Severe tricompartmental right knee osteoarthrosis. Dictated by: Pancho Antonio M.D. on 06/06/2019 at 17:36 Approved by: Pancho Antonio M.D. on 06/06/2019 at 17:37
== END ==
PROVIDERS: PCP Student in an Organized Health Care Education/Training Program; Visit Provider Student in an Organized Health Care Education/Training Program
DX: M17.11 Unilateral primary osteoarthritis, right knee (principal)
CPT/HCPCS: 73562

== ENCOUNTER → 2019-11-22 08:34 | Outpatient (CLI) | payer MEDICARE, SELFPAY ==
[2019-11-22 09:01] LABS: Add Manual Diff / Slide Review NO; Basophils Absolute Auto 0 /uL (0-100); Basophils Percent Auto 0.7 % (0-2); Eosinophils Absolute Auto 200 /uL (0-450); Eosinophils Percent Auto 3.5 % (2-4); Hematocrit 38.2 % (36-46); Hemoglobin 13.3 g/dL (12.0-16.0); Lymphocytes Absolute Auto 1600 /uL (1100-4500); Lymphocytes Percent Auto 27.3 % (25-40); Mean Corpuscular HGB Conc 34.8 % (30-36); Mean Corpuscular Volume 86.2 fL (80-100); Monocytes Absolute Auto 400 /uL (0-900); Monocytes Percent Auto 7.7 % (3-14); Neutrophils Absolute Auto 3500 /uL (1500-7000); Neutrophils Percent Auto 60.8 % (50-75); Platelet Count 205 X10^3/uL (150-400); Red Blood Cell Count 4.43 X10^6/uL (4.0-5.2); Red Cell Distribution Width 14.9 % (11.6-14.8); White Blood Cell Count 5.7 X10^3/uL (4.5-11.0)
[2019-11-22 09:15] LABS: Alanine Aminotransferase 21 IU/L (<35); Albumin 4.6 g/dL (3.5-5.0); Albumin Globulin Ratio 1.4 (1.0-2.8); Alkaline Phosphatase 52 U/L (38-126); Aspartate Aminotransferase 36 IU/L (14-36); BUN Creatinine Ratio 24.7 (6-22); Bilirubin Total 0.5 mg/dL (0.2-1.3); Blood Urea Nitrogen 21 mg/dL (7-17); Calcium 10.1 mg/dL (8.4-10.2); Carbon Dioxide 28 mmol/L (22-32); Chloride 96 mmol/L (98-107); Estimated Glomerular Filt Rate > 60.0 mL/min (>60); Globulin 3.2 g/dL (1.7-4.1); Glucose 114 mg/dL (80-110); HEMOLYSIS 15 (0-50); Potassium 3.4 mmol/L (3.4-5.1); Sodium 135 mmol/L (137-145); Total Protein 7.8 g/dL (6.3-8.2)
[2019-11-22 10:12] LABS: Thyroid Stimulating Hormone 3.44 uIU/mL (0.47-4.68)
== END ==
PROVIDERS: PCP Student in an Organized Health Care Education/Training Program; Referring Provider Student in an Organized Health Care Education/Training Program; Visit Provider Student in an Organized Health Care Education/Training Program
DX: E11.9 Type 2 diabetes mellitus without complications (principal); I10 Essential (primary) hypertension; E78.5 Hyperlipidemia, unspecified; E03.9 Hypothyroidism, unspecified
CPT/HCPCS: 36415; 80053; 83036; 84443; 85025

== ENCOUNTER → 2020-02-23 09:29 | Outpatient (CLI) | payer MEDICARE, SELFPAY | PROVIDERS: PCP Student in an Organized Health Care Education/Training Program; Referring Provider Student in an Organized Health Care Education/Training Program; Visit Provider Student in an Organized Health Care Education/Training Program | DX: I10 Essential (primary) hypertension (principal); E11.9 Type 2 diabetes mellitus without complications | CPT/HCPCS: 36415; 83036 ==

== ENCOUNTER → 2020-04-05 10:58 | Outpatient (CLI) | payer MEDICARE, SELFPAY ==
--- NOTE | 2020-04-05 | DI.MG.S_ITS ---
BILATERAL DIGITAL SCREENING MAMMOGRAM 3D/2D WITH CAD: 04/05/2020 CLINICAL: Routine screening. Comparison is made to exams dated: 04/04/2019 mammogram, 03/24/2018 mammogram - [facility], and 02/01/2017 mammogram - [facility]. The tissue of both breasts is heterogeneously dense. This may lower the sensitivity of mammography. Current study was also evaluated with a Computer Aided Detection (CAD) system. There are benign calcifications in both breasts. There also are benign vascular calcifications in both breasts. Additionally, there is a biopsy clip in the right breast. No significant masses, calcifications, or other findings are seen in either breast. There has been no significant interval change. IMPRESSION: BENIGN There is no mammographic evidence of malignancy. A 1 year screening mammogram is recommended. This exam was interpreted at Station ID: [id number]. NOTE: For mammograms, a report in lay terms will be sent to the patient. Approximately 15% of breast malignancies will not be visualized mammographically. In the management of a palpable breast mass, a negative mammogram must not discourage biopsy of a clinically suspicious lesion. Electronically Signed By: Gregoria cowart/eris:04/05/2020 11:31:52 letter sent: Normal Exam ACR BI-RADS Category 2: Benign Finding(s) 3342F
== END ==
PROVIDERS: PCP Student in an Organized Health Care Education/Training Program; Referring Provider Student in an Organized Health Care Education/Training Program; Visit Provider Student in an Organized Health Care Education/Training Program
DX: Z12.31 Encounter for screening mammogram for malignant neoplasm of breast (principal)
CPT/HCPCS: 77063; 77067

== ENCOUNTER 2020-10-12 10:48 | Emergency (ER) | payer OTHER, SELFPAY ==
--- NOTE | 2020-10-12 10:51 | ED.DIZZY ---
HPI - Dizziness General Chief Complaint: Fall Stated Complaint: bad fall last night, dizziness, tailbone hurts Time Seen by Provider: 10/12/20 10:51 Source: patient Mode of arrival: Ambulatory Limitations: no limitations History of Present Illness HPI Narrative: 80-year-old female nonsmoker with history of hypertension, diabetes and hyperlipidemia presents with a chief complaint of a fall last evening and various complaints in the aftermath. She states that she was walking a puppy that pulled on her leash causing her to fall back, initially landing on her ?sit bone? and then falling back and striking her head. She denies any loss of consciousness, does not take blood thinners though does take a baby aspirin. She has full recall of the event but states that she was briefly dazed when it happened. She denies any focal neurologic symptoms such as blurred vision, trouble speech or numbness, tingling or weakness. She does have some pain along the lateral edges of her neck and also in her low back. She denies any numbness, tingling or weakness of her lower extremities, loss of control of bowel or bladder. MD complaint: other Timing: sudden onset History of trauma: Yes Severity: mild Relieving factors: nothing Exacerbating factors: nothing Related Data Home Medications Medication Instructions Recorded Confirmed alprazolam 0.5 mg PO BID PRN 07/18/18 07/18/18 levothyroxine 25 mcg PO DAILY 07/18/18 07/18/18 losartan-hydrochlorothiazide 1 tab PO DAILY 07/18/18 07/18/18 metformin 500 mg PO BID 07/18/18 07/18/18 metoprolol succinate 25 mg PO DAILY 07/18/18 07/18/18 rosuvastatin 40 mg PO DAILY 07/18/18 07/18/18 Allergies Allergy/AdvReac Type Severity Reaction Status Date / Time codeine AdvReac Intermediate Agitated Verified 07/18/18 07:59 Review of Systems Constitutional Constitutional: Denies chills, Denies fatigue, Denies fever(s), Denies frequent falls, Reports headache(s), Denies lethargy and Denies weakness Eyes Eyes: Denies change in vision, Denies eye discharge, Denies irritation and Denies loss of vision ENT Ears, Nose, Mouth, and Throat: Denies change in voice, Reports dizziness, Reports headache(s), Reports neck pain, Denies sore throat and Denies throat swelling Cardiovascular Cardiovascular: Denies chest pain, Denies irregular heart rhythm, Denies lightheadedness, Denies palpitations, Denies dyspnea, Denies dyspnea on exertion and Denies orthopnea Respiratory Respiratory: Denies cough, Denies dyspnea, Denies dyspnea on exertion and Denies wheezing Gastrointestinal Gastrointestinal: Denies abdominal pain, Denies change in bowel habits, Denies diarrhea, Denies nausea and Denies vomiting Musculoskeletal Musculoskeletal: Reports back pain, Reports neck pain and Denies numbness Integumentary/Breasts Skin/Breast: Denies pruritus, Denies erythema, Denies rash and Denies wounds Neurologic Neurologic: Denies behavioral changes, Denies confusion, Reports dizziness, Denies frequent falls, Reports headache(s), Denies loss of vision, Denies numbness and Denies weakness Psychiatric Psychiatric: Denies anxiety, Denies behavioral changes, Denies confusion, Denies depression, Denies homicidal ideation and Denies suicidal ideation Endocrine Endocrine: Denies fatigue, Denies flushing and Denies palpitations Hematologic/Lymphatic Hematologic/Lymphatic: Denies easy bruising Allergic/Immunologic Allergic/Immunologic: Denies urticaria, Denies throat swelling and Denies wheezing Patient History Medical History (Updated 10/12/20 @ 11:45 by Live Allen DO) Anxiety Hyperlipidemia Hypertension Hypothyroidism Osteoarthritis Personal history of colonic polyps Type 2 diabetes mellitus Surgical History History of colonoscopy History of foot surgery History of hysterectomy History of tonsillectomy Social History household members: spouse Smoking Status: Never smoker Smoking Status: Never smoker alcohol intake frequency: 0-2 drinks per day Substance Use Type: does not use Exam Narrative Exam Narrative: GENERAL: [80] year old patient appears stated age. Well-nourished, well-developed patient, in mild distress. GCS 15 HEAD: Atraumatic. Normocephalic. Scalp contusion noted in her occiput EYES: Pupils equal round and reactive. Extraocular motions intact. No scleral icterus. No injection or drainage. ENT: Nose without bleeding, purulent drainage. Throat without erythema, tonsillar hypertrophy or exudate. Airway patent. NECK: Trachea midline. Tender in the paraspinal region bilaterally, minimal midline tenderness, no crepitance or step-offs. No neurologic symptoms, no change with axial load CARDIOVASCULAR: Regular rate and rhythm without murmurs, gallops, or rubs. RESPIRATORY: Clear to auscultation. Breath sounds equal bilaterally. No wheezes, rales, or rhonchi. GASTROINTESTINAL: Abdomen soft, non-tender, nondistended. EXTREMITIES: No edema or joint tenderness. BACK: Nontender without deformity or crepitance. No flank tenderness. NEURO: AOx3. SKIN: No rash or erythema of visible areas Initial Vital Signs Initial Vital Signs: Vital Signs Temperature 97.9 F 10/12/20 11:02 Pulse Rate 105 H 10/12/20 11:02 Respiratory Rate 18 10/12/20 11:02 Blood Pressure 171/84 H 10/12/20 11:02 Pulse Oximetry 97 10/12/20 11:02 Course Orders Ordered: ED Orders 10/12/20 10:59 CT cervical spine wo con Stat CT head/brain wo con Stat XR lumbar spine 2-3V Stat Vital Signs Vital signs: Vital Signs - 8 hr 10/12/20 11:02 Temperature 97.9 F Pulse Rate 105 H Respiratory Rate 18 Blood Pressure 171/84 H Pulse Oximetry 97 MDM - Dizziness Imaging Data Lumbar Xray: Radiologist's Impression: [address] [id number] ReportSigned Patient: Lidia Alfonso AMR#: [id number]: 3Acct:[id number]/Sex: 80 / FDate of Service: 10/12/20Loc: EDAccession Number: [id number] Procedure: XR lumbar spine 2-3V Ordering Provider: Live Allen D.O. PROCEDURE: XR LUMBAR SPINE 2-3V INDICATIONS: fall with lumbar pain TECHNIQUE: 3 views of the lumbar spine were acquired. COMPARISON: None. FINDINGS: Bones: This patient has transitional lumbar anatomy. For the purposes of this examination, the level with the last well-developed rib is considered to be T12. By this numbering scheme, the S1 level is transitional and partially lumbarized on the left. No displaced fractures are seen. No suspicious lytic or blastic lesions are seen. Mild dextroconvex scoliotic curvature is seen. Mild retrolisthesis is seen at L2-L3 and L3-L4, with minimal retrolisthesis at L1-L2. There is moderate to severe disc space narrowing at L2-L3, with moderate disc space narrowing at L1-L2 and L3-L4. Lower lumbar spine facet arthropathy is seen. Soft tissues: Overlying bowel gas pattern is normal. No suspicious soft tissue calcifications. A 7 mm nonobstructing kidney stone can be seen involving the inferior pole of the left kidney. IMPRESSION: No acute fracture can be seen by plain film. If there is point tenderness (or other clinical suspicion for a fracture not seen on these images) then a dedicated CT could be considered for further evaluation, if clinically appropriate. Lumbar spine degenerative changes are seen, which are worst at the L2-L3 level. There is a nonobstructing left-sided kidney stone, 7 mm. Dictated by: Manuel Stevens M.D. on 10/12/2020 at 10:13 Approved by: Manuel Stevens M.D. on 10/12/2020 at 10:15 CT scan - head: Radiologist's Impression: [address] Scan ReportSigned Patient: Lidia Alfonso AMR#: [id number]: 3Acct:[id number]/Sex: 80 / FDate of Service: 10/12/20Loc: EDAccession Number: [id number] Procedure: CT head/brain wo con Ordering Provider: Live Allen D.O. PROCEDURE: CT HEAD/BRAIN WO CON INDICATIONS: fall, head injury, on aspirin TECHNIQUE: Noncontrast 4.5 mm thick angled axial sections acquired from the foramen magnum to the vertex, with coronal and sagittal reformats. For radiation dose reduction, the following was used: automated exposure control, adjustment of mA and/or kV according to patient size. COMPARISON: [facility], CT, CT CERVICAL SPINE WO CON, 10/12/2020, 11:07. [facility], CT, CT HEAD/BRAIN WO CON, 09/11/2018, 6:01. FINDINGS: Image quality: Excellent. CSF spaces: Basal cisterns are patent. No extra-axial fluid collections. The ventricles are symmetric in size and shape. Brain: No intracranial bleeds or masses. There is cerebral volume loss for age, with resultant ventricular and sulcal prominence. There are periventricular and deep white matter chronic small vessel ischemic changes. There is intracranial internal carotid artery atherosclerosis. Skull and face: Calvarium and visualized facial bones appear intact, without suspicious lesions. Sinuses: Visualized sinuses and mastoids are clear. IMPRESSION: No acute intracranial hemorrhage is seen. No acute intracranial process is seen. Note is made of age-appropriate brain parenchymal volume loss and chronic small vessel ischemic changes. Dictated by: Manuel Stevens M.D. on 10/12/2020 at 10:36 Approved by: Manuel Stevens M.D. on 10/12/2020 at 10:36 CT - cervical spine: Radiologist's Impression: [address] [id number] Scan ReportSigned Patient: Lidia Alfonso AMR#: [id number]: 3Acct:[id number]/Sex: 80 / FDate of Service: 10/12/20Loc: EDAccession Number: [id number] Procedure: CT cervical spine wo con Ordering Provider: Live Allen D.O. PROCEDURE: CT CERVICAL SPINE WO CON INDICATIONS: fall yesterday with neck pain TECHNIQUE: Noncontrast 3 mm thick sections acquired from the skull base to the T4 level. Sagittal and coronal reformats were then constructed. For radiation dose reduction, the following was used: automated exposure control, adjustment of mA and/or kV according to patient size. COMPARISON: [facility], CR, XR LUMBAR SPINE 2-3V, 10/12/2020, 11:02. [facility], CT, CT HEAD/BRAIN WO CON, 10/12/2020, 11:07. FINDINGS: Image quality: Excellent. Bones: No fractures or dislocations. Visualized superior ribs are intact. Reversal of the normal cervical lordosis is seen, with the apex at the C5 level. There is minimal anterolisthesis seen at the C4-C5 level. Vlvj-ea-vabxbzqn disc space narrowing is seen at C4-C5 and C5-C6. Partially bridging anterior osteophytes are seen at C4-C5. Post erected endplate osteophytes are seen at C4-C5 and C5-C6. Focal degenerative change is seen involving the C1-C2 interface anteriorly. Prominent facet hypertrophy can be seen, left worse than right. Milder degenerative changes are seen elsewhere. Soft tissues: Prevertebral soft tissues are normal in thickness. No paravertebral hematomas. No apical pneumothoraces. IMPRESSION: No acute fractures are detected. Relatively prominent degenerative changes are seen. Dictated by: Manuel Stevens M.D. on 10/12/2020 at 10:36 Approved by: Manuel Stevens M.D. on 10/12/2020 at 10:39 Discharge Plan Departure Patient Disposition: Home Clinical Impression: Cervical paraspinal muscle spasm, Lumbar back pain Contusion of scalp Qualifiers: Encounter type: initial encounter Qualified Code(s): S00.03XA - Contusion of scalp, initial encounter Instructions: Low Back Pain, DI for Contusion Activity Restrictions/Additional Instructions: *You have been diagnosed with [fall with minor injuries related to the fall. Your CT scans and x-rays are very reassuring and demonstrate no fracture or abnormal findings] *What to do: *Take medications as directed *Follow up with your primary care provider in 2-3 days, call for an appointment. Let them know you were seen in the Emergency Department and that we ask that you be seen in follow up *Return to ER if you should have any new, worsening or concerning symptoms, such as [confusion, increasing pain, numbness, tingling, weakness or other bothersome symptoms] Prescriptions: No Action metformin 500 mg Tablet 500 mg PO BID RF: 0 levothyroxine 25 mcg Tablet 25 mcg PO DAILY RF: 0 losartan-hydrochlorothiazide 100-25 mg Tablet 1 tab PO DAILY RF: 0 alprazolam 0.5 mg Tablet 0.5 mg PO BID PRN (Reason: Anxiety) RF: 0 rosuvastatin 40 mg Tablet 40 mg PO DAILY RF: 0 metoprolol succinate 25 mg Cap,Sprinkle,Er 24hr Dose Pack 25 mg PO DAILY RF: 0 Referrals: Lo Hall PA-C [Primary Care Provider] -
--- NOTE | 2020-10-12 10:59 | DI.CT.S_ITS ---
PROCEDURE: CT HEAD/BRAIN WO CON INDICATIONS: fall, head injury, on aspirin TECHNIQUE: Noncontrast 4.5 mm thick angled axial sections acquired from the foramen magnum to the vertex, with coronal and sagittal reformats. For radiation dose reduction, the following was used: automated exposure control, adjustment of mA and/or kV according to patient size. COMPARISON: [facility], CT, CT CERVICAL SPINE WO CON, 10/12/2020, 11:07. [facility], CT, CT HEAD/BRAIN WO CON, 09/11/2018, 6:01. FINDINGS: Image quality: Excellent. CSF spaces: Basal cisterns are patent. No extra-axial fluid collections. The ventricles are symmetric in size and shape. Brain: No intracranial bleeds or masses. There is cerebral volume loss for age, with resultant ventricular and sulcal prominence. There are periventricular and deep white matter chronic small vessel ischemic changes. There is intracranial internal carotid artery atherosclerosis. Skull and face: Calvarium and visualized facial bones appear intact, without suspicious lesions. Sinuses: Visualized sinuses and mastoids are clear. IMPRESSION: No acute intracranial hemorrhage is seen. No acute intracranial process is seen. Note is made of age-appropriate brain parenchymal volume loss and chronic small vessel ischemic changes. Dictated by: Manuel Stevens M.D. on 10/12/2020 at 10:36 Approved by: Manuel Stevens M.D. on 10/12/2020 at 10:36
--- NOTE | 2020-10-12 10:59 | DI.RAD.S_ITS ---
PROCEDURE: XR LUMBAR SPINE 2-3V INDICATIONS: fall with lumbar pain TECHNIQUE: 3 views of the lumbar spine were acquired. COMPARISON: None. FINDINGS: Bones: This patient has transitional lumbar anatomy. For the purposes of this examination, the level with the last well-developed rib is considered to be T12. By this numbering scheme, the S1 level is transitional and partially lumbarized on the left. No displaced fractures are seen. No suspicious lytic or blastic lesions are seen. Mild dextroconvex scoliotic curvature is seen. Mild retrolisthesis is seen at L2-L3 and L3-L4, with minimal retrolisthesis at L1-L2. There is moderate to severe disc space narrowing at L2-L3, with moderate disc space narrowing at L1-L2 and L3-L4. Lower lumbar spine facet arthropathy is seen. Soft tissues: Overlying bowel gas pattern is normal. No suspicious soft tissue calcifications. A 7 mm nonobstructing kidney stone can be seen involving the inferior pole of the left kidney. IMPRESSION: No acute fracture can be seen by plain film. If there is point tenderness (or other clinical suspicion for a fracture not seen on these images) then a dedicated CT could be considered for further evaluation, if clinically appropriate. Lumbar spine degenerative changes are seen, which are worst at the L2-L3 level. There is a nonobstructing left-sided kidney stone, 7 mm. Dictated by: Manuel Stevens M.D. on 10/12/2020 at 10:13 Approved by: Manuel Stevens M.D. on 10/12/2020 at 10:15
--- NOTE | 2020-10-12 10:59 | DI.CT.S_ITS ---
PROCEDURE: CT CERVICAL SPINE WO CON INDICATIONS: fall yesterday with neck pain TECHNIQUE: Noncontrast 3 mm thick sections acquired from the skull base to the T4 level. Sagittal and coronal reformats were then constructed. For radiation dose reduction, the following was used: automated exposure control, adjustment of mA and/or kV according to patient size. COMPARISON: [facility], CR, XR LUMBAR SPINE 2-3V, 10/12/2020, 11:02. [facility], CT, CT HEAD/BRAIN WO CON, 10/12/2020, 11:07. FINDINGS: Image quality: Excellent. Bones: No fractures or dislocations. Visualized superior ribs are intact. Reversal of the normal cervical lordosis is seen, with the apex at the C5 level. There is minimal anterolisthesis seen at the C4-C5 level. Khkt-wy-sliqsrok disc space narrowing is seen at C4-C5 and C5-C6. Partially bridging anterior osteophytes are seen at C4-C5. Post erected endplate osteophytes are seen at C4-C5 and C5-C6. Focal degenerative change is seen involving the C1-C2 interface anteriorly. Prominent facet hypertrophy can be seen, left worse than right. Milder degenerative changes are seen elsewhere. Soft tissues: Prevertebral soft tissues are normal in thickness. No paravertebral hematomas. No apical pneumothoraces. IMPRESSION: No acute fractures are detected. Relatively prominent degenerative changes are seen. Dictated by: Manuel Stevens M.D. on 10/12/2020 at 10:36 Approved by: Manuel Stevens M.D. on 10/12/2020 at 10:39
[2020-10-12 11:02] VITALS: BP 171/84; PULSE 105; RESP 18; TEMP 36.6; O2SAT 97; BMI 25.9
[2020-10-12 12:01] VITALS: BP 162/65; PULSE 68; RESP 15; O2SAT 99
== END 2020-10-12 12:03 | disposition home or self-care (01) ==
PROVIDERS: Emergency Provider Emergency Medicine; PCP Student in an Organized Health Care Education/Training Program
DX: M62.838 Other muscle spasm (principal); M54.5 Low back pain; S00.03XA Contusion of scalp, initial encounter; R51.9 Headache, unspecified; M54.2 Cervicalgia; R42 Dizziness and giddiness; W19.XXXA Unspecified fall, initial encounter
CPT/HCPCS: 70450; 72100; 72125; 99281; 99284

== ENCOUNTER → 2020-10-24 12:15 | Outpatient (CLI) | payer OTHER, SELFPAY ==
--- NOTE | 2020-10-24 | DI.RAD.S_ITS ---
PROCEDURE: XR SACRUM COCCYX MIN 2V INDICATIONS: Sacrococcygeal disorders, not elsewhere classified TECHNIQUE: 3 views of the sacrum and coccyx acquired. COMPARISON: [facility], CR, XR LUMBAR SPINE 2-3V, 10/12/2020, 11:02. FINDINGS: IMPRESSION: No evidence of displaced fracture. If clinical concern persists, consider CT evaluation. Dictated by: Neo Cortez M.D. on 10/24/2020 at 15:49 Approved by: Neo Cortez M.D. on 10/24/2020 at 15:54
--- NOTE | 2020-10-24 | DI.RAD.S_ITS ---
PROCEDURE: XR LUMBAR SPINE 2-3V INDICATIONS: Sacrococcygeal disorders, not elsewhere classified TECHNIQUE: 3 views of the lumbar spine were acquired. COMPARISON: [facility], CR, XR LUMBAR SPINE 2-3V, 10/12/2020, 11:02. FINDINGS: Bones: Mild convex left thoracolumbar scoliosis noted. There is normalization of the 1st sacral element reflecting known transitional anatomy. Hypertrophic facet joints and disc space narrowing is noted throughout the exam particularly in the lower lumbar spine. Mild retrolisthesis at L2-3 and L3-4 as well as anterior listhesis at L4-5 remains stable from the prior. 7 mm non-obstructing left renal calculus again noted, unchanged. Moderate fecal debris in the right colon. IMPRESSION: Stable multilevel degenerative disc disease and arthropathy without radiographic evidence of fracture. Stable left renal calculus Dictated by: Neo Cortez M.D. on 10/24/2020 at 15:54 Approved by: Neo Cortez M.D. on 10/24/2020 at 15:59
== END ==
PROVIDERS: PCP Student in an Organized Health Care Education/Training Program; Referring Provider Student in an Organized Health Care Education/Training Program; Visit Provider Student in an Organized Health Care Education/Training Program
DX: M53.3 Sacrococcygeal disorders, not elsewhere classified (principal); M51.36 Other intervertebral disc degeneration, lumbar region; M47.816 Spondylosis without myelopathy or radiculopathy, lumbar region; M41.85 Other forms of scoliosis, thoracolumbar region; N20.0 Calculus of kidney
CPT/HCPCS: 72100; 72220

== ENCOUNTER → 2020-11-28 14:58 | Outpatient (ROUT) | payer OTHER, SELFPAY ==
[2020-11-28 16:34] LABS: Add Manual Diff / Slide Review NO; Basophils Absolute Auto 100 /uL (0-100); Basophils Percent Auto 0.7 % (0-2); Eosinophils Absolute Auto 100 /uL (0-450); Eosinophils Percent Auto 1.8 % (2-4); Hematocrit 38.7 % (36-46); Hemoglobin 13.1 g/dL (12.0-16.0); Lymphocytes Absolute Auto 1300 /uL (1100-4500); Lymphocytes Percent Auto 18.4 % (25-40); Mean Corpuscular HGB Conc 33.7 % (30-36); Mean Corpuscular Hemoglobin 29.6 PG (26-34); Mean Corpuscular Volume 87.9 fL (80-100); Monocytes Absolute Auto 500 /uL (0-900); Monocytes Percent Auto 7.7 % (3-14); Neutrophils Absolute Auto 5000 /uL (1500-7000); Neutrophils Percent Auto 71.4 % (50-75); Platelet Count 207 X10^3/uL (150-400); Red Cell Distribution Width 14.4 % (11.6-14.8)
[2020-11-28 16:54] LABS: Alanine Aminotransferase 18 IU/L (<35); Albumin 4.2 g/dL (3.5-5.0); Albumin Globulin Ratio 1.5 (1.0-2.8); Alkaline Phosphatase 64 U/L (38-126); Aspartate Aminotransferase 37 IU/L (14-36); BUN Creatinine Ratio 19.4 (6-22); Bilirubin Total 0.3 mg/dL (0.2-1.3); Blood Urea Nitrogen 14 mg/dL (7-17); Carbon Dioxide 30 mmol/L (22-32); Chloride 93 mmol/L (98-107); Cholesterol 149 mg/dL (140-199); Estimated Glomerular Filt Rate > 60.0 mL/min (>60); Globulin 2.8 g/dL (1.7-4.1); Glucose 103 mg/dL (80-110); HDL Cholesterol 64 mg/dL (40-60); HEMOLYSIS < 15 (0-50); LDL Cholesterol Calculated 62 mg/dL (<100); Potassium 3.8 mmol/L (3.4-5.1); Sodium 132 mmol/L (137-145); Triglycerides 117 mg/dL (35-150)
[2020-11-28 17:18] LABS: Thyroid Stimulating Hormone 5.45 uIU/mL (0.47-4.68)
== END ==
PROVIDERS: PCP Student in an Organized Health Care Education/Training Program; Visit Provider Student in an Organized Health Care Education/Training Program
DX: Z00.00 Encounter for general adult medical examination without abnormal findings (principal); E11.9 Type 2 diabetes mellitus without complications; I10 Essential (primary) hypertension; E78.5 Hyperlipidemia, unspecified; E03.9 Hypothyroidism, unspecified
CPT/HCPCS: 80053; 80061; 84443; 85025

== ENCOUNTER → 2021-04-08 12:20 | Outpatient (CLI) | payer OTHER, SELFPAY ==
--- NOTE | 2021-04-08 | DI.MG.S_ITS ---
BILATERAL DIGITAL SCREENING MAMMOGRAM 3D/2D WITH CAD: 04/08/2021 CLINICAL: Routine screening. Comparison is made to exams dated: 04/05/2020 mammogram, 04/04/2019 mammogram, and 03/24/2018 mammogram - [facility]. The tissue of both breasts is heterogeneously dense. This may lower the sensitivity of mammography. Current study was also evaluated with a Computer Aided Detection (CAD) system. There are benign calcifications in both breasts. There also are benign vascular calcifications in both breasts. Additionally, there is a biopsy clip in the right breast. No significant masses, calcifications, or other findings are seen in either breast. There has been no significant interval change. IMPRESSION: BENIGN There is no mammographic evidence of malignancy. A 1 year screening mammogram is recommended. This exam was interpreted at Station ID: [id number]. NOTE: For mammograms, a report in lay terms will be sent to the patient. Approximately 15% of breast malignancies will not be visualized mammographically. In the management of a palpable breast mass, a negative mammogram must not discourage biopsy of a clinically suspicious lesion. Electronically Signed By: Pancho velasquez/eris:04/08/2021 18:09:53 letter sent: Normal Exam ACR BI-RADS Category 2: Benign Finding(s) [id number]
== END ==
PROVIDERS: PCP Student in an Organized Health Care Education/Training Program; Referring Provider Student in an Organized Health Care Education/Training Program; Visit Provider Student in an Organized Health Care Education/Training Program
DX: Z12.31 Encounter for screening mammogram for malignant neoplasm of breast (principal)
CPT/HCPCS: 77063; 77067

== ENCOUNTER 2021-12-01 12:28 | Emergency (ER) | payer OTHER, SELFPAY ==
[2021-12-01 12:56] VITALS: BP 164/79; PULSE 79; RESP 22; TEMP 36.6; O2SAT 98
--- NOTE | 2021-12-01 13:01 | DI.RAD.S_ITS ---
PROCEDURE: XR CHEST 2V INDICATIONS: cough, COVID+ TECHNIQUE: 2 views of the chest were acquired. COMPARISON: None. FINDINGS: Surgical changes and devices: None. Lungs and pleura: Lungs are clear. No pleural effusions or pneumothorax. Mediastinum: The cardiac contours are within normal limits. The aorta demonstrates calcification and tortuosity. Bones and chest wall: No suspicious bony abnormalities. Age-appropriate bony degenerative changes are seen. S-shaped scoliotic curvature is seen. Soft tissues appear unremarkable. IMPRESSION: No focal infiltrates are seen. If clinically appropriate, a short-term followup chest series (with PA and lateral views) performed in deep inspiration is suggested for further evaluation. Dictated by: Manuel Stevens M.D. on 12/01/2021 at 12:35 Approved by: Manuel Stevens M.D. on 12/01/2021 at 12:36
--- NOTE | 2021-12-01 14:41 | ED.FEVER ---
HPI - Fever <Mic Wing PA-C - Last Filed: 12/01/21 18:19> General Chief Complaint: Fever Stated Complaint: Cough, sore throat, dizzy COVID+ Time Seen by Provider: 12/01/21 14:39 Source: patient Mode of arrival: Ambulatory History of Present Illness HPI Narrative: 81-year-old female with past medical history hypertension, prediabetes, hypothyroidism, hypercholesterolemia presents to the ED with 4 days of cough, fever. Patient patient endorses fever, cough, headache, diarrhea. Patient denies chest pain, shortness of breath, nausea, vomiting, abdominal pain, dysuria, lightheadedness, dizziness, syncope. Patient tested positive for COVID 19 at home. Takes losartan, amlodipine, metoprolol, metformin, hydrochlorothiazide, rosuvastatin, levothyroxine daily. Takes alprazolam (prn). Patient is interested in Paxlovid therapy for Covid-19. Related Data Home Medications Medication Instructions Recorded Confirmed alprazolam 0.5 mg tablet 0.5 mg PO BID PRN 07/18/18 07/18/18 levothyroxine 25 mcg tablet 25 mcg PO DAILY 07/18/18 07/18/18 losartan 100 1 tab PO DAILY 07/18/18 07/18/18 mg-hydrochlorothiazide 25 mg tablet metformin 500 mg tablet 500 mg PO BID 07/18/18 07/18/18 metoprolol succinate 25 mg capsule 25 mg PO DAILY 07/18/18 07/18/18 sprinkle, ext. release 24 hr rosuvastatin 40 mg tablet 40 mg PO DAILY 07/18/18 07/18/18 Previous Rx's Medication Instructions Recorded benzonatate 200 mg capsule 200 mg PO TID PRN #30 cap 12/01/21 nirmatrelvir 300 mg (150 mg x See Rx Instructions .ROUTE 12/01/21 2)-ritonavir 100 mg tablet (EUA) .COMPLEX #30 tab (Paxlovid 300 mg () Allergies Allergy/AdvReac Type Severity Reaction Status Date / Time codeine AdvReac Intermediate Agitated Verified 07/18/18 07:59 Review of Systems <Mic Wing PA-C - Last Filed: 12/01/21 18:19> Review of Systems ROS Unobtainable: All systems reviewed & are unremarkable except as noted in HPI and below Constitutional Constitutional: Denies chills, Denies fatigue, Reports fever(s), Denies frequent falls, Reports headache(s), Denies lethargy and Denies weakness Eyes Eyes: Denies change in vision, Denies eye discharge, Denies irritation and Denies loss of vision ENT Ears, Nose, Mouth, and Throat: Denies change in voice, Denies dizziness, Reports headache(s), Denies neck pain, Denies sore throat and Denies throat swelling Cardiovascular Cardiovascular: Denies chest pain, Denies irregular heart rhythm, Denies lightheadedness, Denies palpitations, Denies dyspnea, Denies dyspnea on exertion and Denies orthopnea Respiratory Respiratory: Reports cough, Denies dyspnea, Denies dyspnea on exertion and Denies wheezing Gastrointestinal Gastrointestinal: Denies abdominal pain, Denies change in bowel habits, Reports diarrhea, Denies nausea and Denies vomiting Genitourinary Genitourinary: Denies hematuria, Denies flank pain, Denies urinary incontinence and Denies urinary urgency Musculoskeletal Musculoskeletal: Denies back pain, Denies muscle weakness, Denies neck pain, Denies numbness and Denies tingling Integumentary/Breasts Skin/Breast: Denies pruritus, Denies erythema, Denies rash and Denies wounds Neurologic Neurologic: Denies behavioral changes, Denies confusion, Denies dizziness, Denies frequent falls, Reports headache(s), Denies loss of vision, Denies numbness, Denies tingling and Denies weakness Psychiatric Psychiatric: Denies anxiety, Denies behavioral changes, Denies confusion, Denies depression, Denies homicidal ideation and Denies suicidal ideation Endocrine Endocrine: Denies fatigue, Denies flushing and Denies palpitations Hematologic/Lymphatic Hematologic/Lymphatic: Denies easy bruising Allergic/Immunologic Allergic/Immunologic: Denies urticaria, Denies throat swelling and Denies wheezing Patient History <Mic Wing PA-C - Last Filed: 12/01/21 18:19> Medical History (Updated 12/01/21 @ 17:12 by Mic Wing PA-C) Anxiety Hyperlipidemia Hypertension Hypothyroidism Osteoarthritis Personal history of colonic polyps Type 2 diabetes mellitus Surgical History History of colonoscopy History of foot surgery History of hysterectomy History of tonsillectomy Social History household members: spouse Smoking Status: Never smoker Smoking Status: Never smoker alcohol intake frequency: 0-2 drinks per day Alcohol type: wine Substance Use Type: does not use Exam <Mic Wing PA-C - Last Filed: 12/01/21 18:19> Narrative Exam Narrative: Const General:?cooperative, healthy appearing and comfortable HENMT Head:?normal to inspection Ears:?hearing grossly normal bilaterally Nose:?external nose normal Face and sinus:?normal facial exam and sinuses nontender Mouth:?oral mucosae normal Throat:?posterior oropharynx normal Eyes General:?appearance normal, both eyes and all related structures Neck Neck:?normal visual inspection and no lymphadenopathy noted Resp Effort & Inspection:?normal respiratory effort Auscultation:?clear to auscultation bilaterally Cardio Rate:?regular rate Rhythm:?regular rhythm Neuro General:?patient alert, patient awake and patient oriented x3 Initial Vital Signs Initial Vital Signs: Vital Signs Temperature 97.9 F 12/01/21 12:56 Pulse Rate 79 12/01/21 12:56 Respiratory Rate 22 12/01/21 12:56 Blood Pressure 164/79 H 12/01/21 12:56 Pulse Oximetry 98 12/01/21 12:56 <Nidia Weems DO - Last Filed: 12/03/21 07:44> Initial Vital Signs Initial Vital Signs: Vital Signs Temperature 97.9 F 12/01/21 12:56 Pulse Rate 79 12/01/21 12:56 Respiratory Rate 22 12/01/21 12:56 Blood Pressure 164/79 H 12/01/21 12:56 Pulse Oximetry 98 12/01/21 12:56 Course <Mic Wing PA-C - Last Filed: 12/01/21 18:19> Orders Ordered: ED Orders 12/01/21 13:01 Chest [XR chest 2V] Stat 12/01/21 16:13 CBC Auto Diff [Complete Blood Count AUTO DIFF] Stat CMP [Comprehensive Metabolic Panel] Stat 12/01/21 16:30 COVID19 -Nasal RAPID/Pre-Proc Stat Vital Signs Vital signs: Vital Signs - 8 hr 12/01/21 12:56 12/01/21 17:29 Temperature 97.9 F Pulse Rate 79 78 Respiratory Rate 22 14 Blood Pressure 164/79 H 142/75 H Pulse Oximetry 98 96 <Nidia Weems DO - Last Filed: 12/03/21 07:44> Orders Ordered: ED Orders 12/01/21 13:01 Chest [XR chest 2V] Stat 12/01/21 16:13 CBC Auto Diff [Complete Blood Count AUTO DIFF] Stat CMP [Comprehensive Metabolic Panel] Stat 12/01/21 16:30 COVID19 -Nasal RAPID/Pre-Proc Stat Vital Signs Vital signs: Vital Signs - 8 hr 12/01/21 12:56 12/01/21 17:29 Temperature 97.9 F Pulse Rate 79 78 Respiratory Rate 22 14 Blood Pressure 164/79 H 142/75 H Pulse Oximetry 98 96 MDM - Fever <Mic Wing PA-C - Last Filed: 12/01/21 18:19> Medical Records Attestation: I reviewed the patient's medical records. Lab Data Result diagrams: 12/01/21 16:13 12/01/21 16:13 Labs: Lab Results 12/01/21 12/01/21 12/01/21 Range/Units 16:13 16:13 16:30 WBC 4.8 (4.5-11.0) X10^3/uL RBC 4.49 (4.0-5.2) X10^6/uL Hgb 13.4 (12.0-16.0) g/dL Hct 38.3 (36-46) % MCV 85.2 (80-100) fL MCH 29.8 (26-34) PG MCHC 35.0 (30-36) % RDW 14.8 (11.6-14.8) % Plt Count 184 (150-400) X10^3/uL Neut % (Auto) 60.5 (50-75) % Lymph % (Auto) 25.6 (25-40) % Stafford % (Auto) 12.4 (3-14) % Eos % (Auto) 0.5 L (2-4) % Baso % (Auto) 1.0 (0-2) % Neut # (Auto) 2900 (4677-0777) /uL Lymph # (Auto) 1200 (0423-9839) /uL Stafford # (Auto) 600 (0-900) /uL Eos # (Auto) 0 (0-450) /uL Baso # (Auto) 0 (0-100) /uL Sodium 137 (137-145) mmol/L Potassium 3.7 (3.4-5.1) mmol/L Chloride 100 (98-107) mmol/L Carbon Dioxide 26 (22-32) mmol/L BUN 13 (7-17) mg/dL Creatinine 0.80 (0.52-1.04) mg/dL Estimated GFR > 60 (>60) mL/min BUN/Creatinine Ratio 16.3 (6-22) Glucose 113 H (80-110) mg/dL Calcium 10.0 (8.4-10.2) mg/dL Total Bilirubin 0.3 (0.2-1.3) mg/dL AST 39 H (14-36) IU/L ALT 25 (<35) IU/L Alkaline Phosphatase 67 (38-126) U/L Total Protein 8.5 H (6.3-8.2) g/dL Albumin 4.9 (3.5-5.0) g/dL Globulin 3.6 (1.7-4.1) g/dL Albumin/Globulin Ratio 1.4 (1.0-2.8) SARS-CoV-2 (PCR) Positive H (Negative) Imaging Data Chest x-ray: Radiologist's Impression: PROCEDURE:? XR CHEST 2V ? INDICATIONS:? cough, COVID+ ? TECHNIQUE:? 2 views of the chest were acquired.? ? COMPARISON:? None. ? FINDINGS:? ? Surgical changes and devices:? None.? ? Lungs and pleura:? Lungs are clear.? No pleural effusions or pneumothorax.? ? Mediastinum:? The cardiac contours are within normal limits. The aorta demonstrates calcification and tortuosity. ? Bones and chest wall:? No suspicious bony abnormalities.? Age-appropriate bony degenerative changes are seen.? S-shaped scoliotic curvature is seen. ? Soft tissues appear unremarkable.? ? ? IMPRESSION:? No focal infiltrates are seen. ? If clinically appropriate, a short-term followup chest series (with PA and lateral views) performed in deep inspiration is suggested for further evaluation.? Dictated by: Manuel Stevens M.D. on 12/01/2021 at 12:35 ? ? Approved by: Manuel Stevens M.D. on 12/01/2021 at 12:36 ? [facility] Narrative Medical decision making narrative: 81-year-old female with past medical history hypertension, prediabetes, hypothyroidism, hypercholesterolemia presents to the ED with 4 days of cough, fever. Will test patient for COVID-19 to confirm diagnosis. Consulted the pharmacist for interactions on amlodipine, rosuvastatin, alprazolam. Per the pharmacist patient can continue amlodipine but monitor for hypotension/dizziness. Patient advised to stop rosuvastatin when taking Paxlovid. Patient to reduce alprazolam by 50% when taking Paxlovid. Will check kidney function to see if patient is eligible. GFR greater than 60, creatinine within normal limits. Prescribed Paxlovid. ED return precautions discussed with patient. Patient verbalized understanding. <Nidia Weems, DO - Last Filed: 12/03/21 07:44> Lab Data Labs: Lab Results 12/01/21 12/01/21 12/01/21 Range/Units 16:13 16:13 16:30 WBC 4.8 (4.5-11.0) X10^3/uL RBC 4.49 (4.0-5.2) X10^6/uL Hgb 13.4 (12.0-16.0) g/dL Hct 38.3 (36-46) % MCV 85.2 (80-100) fL MCH 29.8 (26-34) PG MCHC 35.0 (30-36) % RDW 14.8 (11.6-14.8) % Plt Count 184 (150-400) X10^3/uL Neut % (Auto) 60.5 (50-75) % Lymph % (Auto) 25.6 (25-40) % Stafford % (Auto) 12.4 (3-14) % Eos % (Auto) 0.5 L (2-4) % Baso % (Auto) 1.0 (0-2) % Neut # (Auto) 2900 (0283-9176) /uL Lymph # (Auto) 1200 (4913-7539) /uL Stafford # (Auto) 600 (0-900) /uL Eos # (Auto) 0 (0-450) /uL Baso # (Auto) 0 (0-100) /uL Sodium 137 (137-145) mmol/L Potassium 3.7 (3.4-5.1) mmol/L Chloride 100 (98-107) mmol/L Carbon Dioxide 26 (22-32) mmol/L BUN 13 (7-17) mg/dL Creatinine 0.80 (0.52-1.04) mg/dL Estimated GFR > 60 (>60) mL/min BUN/Creatinine Ratio 16.3 (6-22) Glucose 113 H (80-110) mg/dL Calcium 10.0 (8.4-10.2) mg/dL Total Bilirubin 0.3 (0.2-1.3) mg/dL AST 39 H (14-36) IU/L ALT 25 (<35) IU/L Alkaline Phosphatase 67 (38-126) U/L Total Protein 8.5 H (6.3-8.2) g/dL Albumin 4.9 (3.5-5.0) g/dL Globulin 3.6 (1.7-4.1) g/dL Albumin/Globulin Ratio 1.4 (1.0-2.8) SARS-CoV-2 (PCR) Positive H (Negative) Discharge Plan Departure Patient Disposition: Home Clinical Impression: COVID-19 Instructions: DI for COVID-19 (Suspected or Confirmed ) Activity Restrictions/Additional Instructions: You were evaluated in the ED today for COVID-19. You are being prescribed Paxlovid, which is an antiviral therapy that can prevent progression of COVID-19 to severe illness. You take rosuvastatin which you should stop when you are taking the Paxlovid. Monitor your blood pressure at home since Paxlovid can increase the levels of amlodipine. If your blod pressure is too low or you feel dizzy, stop amlodipine when takign Paxlovid. Please reduce your alprazolam dose by 50% when taking Paxlovid. You are also being prescribed a cough medication, Tessalon Perles. Return to the ED if you experience any chest pain, shortness of breath. Prescriptions: New Paxlovid (EUA) 150 mg x 2- 100 mg tablet See Rx Instructions .ROUTE .COMPLEX Qty: 30 0RF Rx Instructions: take TWO 150 mg tablets of nirmatrelvir with ONE 100 mg tablet of ritonavir twice daily for 5 days. GFR >60, creatinine 0.80, day 4 of Covid-19 symptoms;Stop rosuvastatin when taking Paxlovid; take a 50% dose of alprazolam while taking Paxlovid;Monitor your blood pressure, stop amlodipine if your blood pressure gets too low. benzonatate 200 mg capsule 200 mg PO TID PRN (Reason: cough) Qty: 30 0RF No Action metformin 500 mg Tablet 500 mg PO BID 0RF levothyroxine 25 mcg Tablet 25 mcg PO DAILY 0RF losartan-hydrochlorothiazide 100-25 mg Tablet 1 tab PO DAILY 0RF alprazolam 0.5 mg Tablet 0.5 mg PO BID PRN (Reason: Anxiety) 0RF rosuvastatin 40 mg Tablet 40 mg PO DAILY 0RF metoprolol succinate 25 mg Cap,Sprinkle,Er 24hr Dose Pack 25 mg PO DAILY 0RF Referrals: Lo Hall PA-C [Primary Care Provider] - <Nidia Weems DO - Last Filed: 12/03/21 07:44> Cosign ED Attending Karleyature Attestation: I was immediately available in the department for consultation. Documentation has been reviewed.
[2021-12-01 16:35] LABS: Add Manual Diff / Slide Review NO; Basophils Absolute Auto 0 /uL (0-100); Eosinophils Absolute Auto 0 /uL (0-450); Eosinophils Percent Auto 0.5 % (2-4); Hematocrit 38.3 % (36-46); Hemoglobin 13.4 g/dL (12.0-16.0); Lymphocytes Absolute Auto 1200 /uL (1100-4500); Lymphocytes Percent Auto 25.6 % (25-40); Mean Corpuscular Hemoglobin 29.8 PG (26-34); Mean Corpuscular Volume 85.2 fL (80-100); Monocytes Absolute Auto 600 /uL (0-900); Monocytes Percent Auto 12.4 % (3-14); Neutrophils Absolute Auto 2900 /uL (1500-7000); Neutrophils Percent Auto 60.5 % (50-75); Platelet Count 184 X10^3/uL (150-400); Red Blood Cell Count 4.49 X10^6/uL (4.0-5.2); Red Cell Distribution Width 14.8 % (11.6-14.8); White Blood Cell Count 4.8 X10^3/uL (4.5-11.0)
[2021-12-01 16:40] LABS: Alanine Aminotransferase 25 IU/L (<35); Albumin 4.9 g/dL (3.5-5.0); Albumin Globulin Ratio 1.4 (1.0-2.8); Alkaline Phosphatase 67 U/L (38-126); Aspartate Aminotransferase 39 IU/L (14-36); BUN Creatinine Ratio 16.3 (6-22); Bilirubin Total 0.3 mg/dL (0.2-1.3); Blood Urea Nitrogen 13 mg/dL (7-17); Carbon Dioxide 26 mmol/L (22-32); Chloride 100 mmol/L (98-107); Estimated Glomerular Filt Rate > 60 mL/min (>60); Globulin 3.6 g/dL (1.7-4.1); Glucose 113 mg/dL (80-110); HEMOLYSIS < 15 (0-50); Potassium 3.7 mmol/L (3.4-5.1); Sodium 137 mmol/L (137-145); Total Protein 8.5 g/dL (6.3-8.2)
[2021-12-01 16:53] LABS: COVID19 -Nasal RAPID POSITIVE (Negative)
[2021-12-01 17:29] VITALS: BP 142/75; PULSE 78; RESP 14; O2SAT 96
== END 2021-12-01 17:30 | disposition home or self-care (01) ==
PROVIDERS: Emergency Provider Student in an Organized Health Care Education/Training Program; PCP Student in an Organized Health Care Education/Training Program
DX: U07.1 COVID-19 (principal)
CPT/HCPCS: 36415; 71046; 80053; 85025; 87635; 99283; C9803

== ENCOUNTER → 2022-04-10 11:45 | Outpatient (CLI) | payer OTHER, SELFPAY ==
--- NOTE | 2022-04-10 11:47 | DI.MG.S_ITS ---
BILATERAL DIGITAL SCREENING MAMMOGRAM 3D/2D WITH CAD: 04/10/2022 CLINICAL: Routine screening. Comparison is made to exams dated: 04/08/2021 mammogram, 04/05/2020 mammogram, and 04/04/2019 mammogram - [facility]. Both breasts are heterogeneously dense, which may obscure small masses (category c / 51-75% glandular tissue). Current study was also evaluated with a Computer Aided Detection (CAD) system. There are benign calcifications in both breasts. There also are benign vascular calcifications in both breasts. Additionally, there is a biopsy clip in the right breast. No significant masses, calcifications, or other findings are seen in either breast. There has been no significant interval change. IMPRESSION: BENIGN There is no mammographic evidence of malignancy. A 1 year screening mammogram is recommended. Based on the Tyrer Cuzick model (a risk assessment model) the patient's lifetime risk is 2.9% and her 10 year risk is 0.0%. According to the ACR, ACS, and NCCN guidelines, an annual breast MRI exam along with mammogram is recommended if the patient's lifetime risk is 20% or greater. This exam was interpreted at Station ID: [id number]. NOTE: For mammograms, a report in lay terms will be sent to the patient. Approximately 15% of breast malignancies will not be visualized mammographically. In the management of a palpable breast mass, a negative mammogram must not discourage biopsy of a clinically suspicious lesion. Electronically Signed By: Ricky bender/eris:04/10/2022 15:19:01 letter sent: Normal Exam ACR BI-RADS Category 2: Benign Finding(s) [id number]
== END ==
PROVIDERS: PCP Student in an Organized Health Care Education/Training Program; Referring Provider Student in an Organized Health Care Education/Training Program; Visit Provider Student in an Organized Health Care Education/Training Program
DX: Z12.31 Encounter for screening mammogram for malignant neoplasm of breast (principal)
CPT/HCPCS: 77063; 77067

== ENCOUNTER → 2023-04-29 13:51 | Outpatient (CLI) | payer OTHER, SELFPAY ==
--- NOTE | 2023-04-29 | DI.MG.S_ITS ---
BILATERAL DIGITAL SCREENING MAMMOGRAM 3D/2D WITH CAD: 04/29/2023 CLINICAL: Routine screening. Comparison is made to exams dated: 04/10/2022 mammogram, 04/08/2021 mammogram, and 04/05/2020 mammogram - [facility]. Both breasts are heterogeneously dense, which may obscure small masses (category c / 51-75% glandular tissue). Current study was also evaluated with a Computer Aided Detection (CAD) system. There are benign calcifications in both breasts. There also are benign vascular calcifications in both breasts. Additionally, there is a biopsy clip in the right breast. No significant masses, calcifications, or other findings are seen in either breast. There has been no significant interval change. IMPRESSION: BENIGN There is no mammographic evidence of malignancy. A 1 year screening mammogram is recommended. Based on the Tyrer Cuzick model (a risk assessment model) the patient's lifetime risk is 2.5% and her 10 year risk is 0.0%. According to the ACR, ACS, and NCCN guidelines, an annual breast MRI exam along with mammogram is recommended if the patient's lifetime risk is 20% or greater. This exam was interpreted at Station ID: [id number]. NOTE: For mammograms, a report in lay terms will be sent to the patient. Approximately 15% of breast malignancies will not be visualized mammographically. In the management of a palpable breast mass, a negative mammogram must not discourage biopsy of a clinically suspicious lesion. Electronically Signed By: Ricky bender/eris:04/29/2023 17:02:29 letter sent: Normal Exam ACR BI-RADS Category 2: Benign Finding(s) [id number]
== END ==
PROVIDERS: PCP Student in an Organized Health Care Education/Training Program; Referring Provider Student in an Organized Health Care Education/Training Program; Visit Provider Student in an Organized Health Care Education/Training Program
DX: Z12.31 Encounter for screening mammogram for malignant neoplasm of breast (principal)
CPT/HCPCS: 77063; 77067

== ENCOUNTER 2023-08-08 09:57 | Emergency (ER) | payer MEDICARE, SELFPAY ==
[2023-08-08 10:00] VITALS: BP 185/84; PULSE 79; RESP 18; TEMP 36.4; O2SAT 98; BMI 24.3
--- NOTE | 2023-08-08 10:13 | PC.NURSE ---
Pt came to the emergency department because she tested positive for covid today. Pt went to [facility] and reports that they would not see her because they don't have labs and they do not have paxlovid to give her. Pt stated that she then called her pcp's on-call physician and they advised her to go to an Urgnt Care clinic. Pt googled urgent care and the closest one was in , so pt decided to come here instead because it was closer. Pt c/o sore throat, right ear pain, headache and fever. States that she took tylenol and mucinex at 0800. Pt's is currently admitted to the inpatient unit with covid and she reports that she was concerned and wanted to be seen by a doctor. Pt able to speak in full sentences. Skin warm and dry and pt a&ox4. Pt states that she is able to tolerate PO intake.
--- NOTE | 2023-08-08 10:19 | ED.GENADULT ---
HPI - General Adult General Chief complaint: Upper Respiratory Symptoms Stated complaint: COVID+ Time Seen by Provider: 08/08/23 10:12 Source: patient Mode of arrival: Ambulatory Limitations: no limitations History of Present Illness HPI narrative: Patient is an 83-year-old female. No underlying lung pathology. has been admitted to the hospital for COVID-19 and other chronic medical problems. Patient states that last evening she started to not feel well with fevers and body aches and a sore throat. This morning her symptoms persisted. She took a home COVID test and it was positive. She stated that she contacted her primary doctor who stated that she needed to go to either the walk-in clinic with the ER. States the walk-in clinic refused to see her. She states she has had Paxlovid in the past and has worked for her and she would like to take it again. Related Data Home Medications Medication Instructions Recorded Confirmed alprazolam 0.5 mg tablet 0.5 mg PO BID PRN Anxiety 07/18/18 07/18/18 levothyroxine 25 mcg tablet 25 mcg PO DAILY 07/18/18 07/18/18 losartan 100 1 tab PO DAILY 07/18/18 07/18/18 mg-hydrochlorothiazide 25 mg tablet metformin 500 mg tablet 500 mg PO BID 07/18/18 07/18/18 metoprolol succinate 25 mg capsule 25 mg PO DAILY 07/18/18 07/18/18 sprinkle, ext. release 24 hr rosuvastatin 40 mg tablet 40 mg PO DAILY 07/18/18 07/18/18 Previous Rx's Medication Instructions Recorded benzonatate 200 mg capsule 200 mg PO TID PRN cough #30 caps 12/01/21 nirmatrelvir 300 mg (150 mg See Rx Instructions PO .COMPLEX 12/01/21 x2)-ritonavir 100 mg tablet,dose #30 tabs pack (Paxlovid) nirmatrelvir 300 mg (150 mg See Rx Instructions PO .COMPLEX 08/08/23 x2)-ritonavir 100 mg tablet,dose #30 ea pack (Paxlovid) Allergies Allergy/AdvReac Type Severity Reaction Status Date / Time codeine AdvReac Intermediate Agitated Verified 07/18/18 07:59 Review of Systems Constitutional Constitutional: Reports system reviewed and no additional complaints, except as documented ENT Ears, Nose, Mouth, and Throat: Reports system reviewed and no additional complaints, except as documented Cardiovascular Cardiovascular: Reports system reviewed and no additional complaints, except as documented Respiratory Respiratory: Reports system reviewed and no additional complaints, except as documented Gastrointestinal Gastrointestinal: Reports system reviewed and no additional complaints, except as documented Patient History Medical History Osteoarthritis Anxiety Hypothyroidism Hyperlipidemia Personal history of colonic polyps Hypertension Type 2 diabetes mellitus Surgical History History of foot surgery History of tonsillectomy History of hysterectomy History of colonoscopy Social History household members: spouse Smoking Status: Never smoker Smoking Status: Never smoker alcohol intake frequency: 0-2 drinks per day Alcohol type: wine Substance Use Type: does not use Exam Initial Vital Signs Initial Vital Signs: Vital Signs Temperature 97.6 F 08/08/23 10:00 Pulse Rate 79 08/08/23 10:00 Respiratory Rate 18 08/08/23 10:00 Blood Pressure 185/84 H 08/08/23 10:00 Pulse Oximetry 98 08/08/23 10:00 Oxygen Delivery Method Room Air 08/08/23 10:00 HENMT Head: normal to inspection and normocephalic Resp Effort & Inspection: normal respiratory effort Auscultation: clear to auscultation bilaterally Cardio Rate: regular rate Rhythm: regular rhythm Neuro General: patient alert, patient awake and patient oriented x3 Course Vital Signs Vital signs: Vital Signs - 8 hr 08/08/23 10:00 Temperature 97.6 F Pulse Rate 79 Respiratory Rate 18 Blood Pressure 185/84 H Pulse Oximetry 98 Oxygen Delivery Method Room Air Medical Decision Making [facility] Narrative Medical decision making narrative: Patient is not hypoxic. Not tachypneic. Lungs are clear. Afebrile. Patient has had Paxlovid in the past. We discussed Paxlovid. Discussed expectations with regard to this medication. Discussed potential rebound symptoms. Patient expressed understanding and agreement with this. A prescription was sent to the pharmacy of her choice. She was given return precautions. She expressed understanding and agreement. Discharge Plan Departure Patient Disposition: Home Clinical Impression: COVID-19 Instructions: COVID-19 Activity Restrictions/Additional Instructions: A prescription for Paxlovid was sent to [facility]. Please start taking it as directed. Please follow all CDC guidelines with regard to quarantine. Return to the emergency department for new symptoms. Prescriptions: New Paxlovid 300 mg (150 mg x 2)-100 mg tablets,dose pack See Rx Instructions .ROUTE .COMPLEX Qty: 30 0RF Rx Instructions: take TWO 150 mg tablets of nirmatrelvir with ONE 100 mg tablet of ritonavir twice daily for 5 days No Action metformin 500 mg Tablet 500 mg PO BID levothyroxine 25 mcg Tablet 25 mcg PO DAILY losartan-hydrochlorothiazide 100-25 mg Tablet 1 tab PO DAILY alprazolam 0.5 mg Tablet 0.5 mg PO BID PRN (Reason: Anxiety) rosuvastatin 40 mg Tablet 40 mg PO DAILY metoprolol succinate 25 mg Cap,Sprinkle,Er 24hr Dose Pack 25 mg PO DAILY Paxlovid 150 mg x 2- 100 mg tablet See Rx Instructions .ROUTE .COMPLEX Qty: 30 0RF Rx Instructions: take TWO 150 mg tablets of nirmatrelvir with ONE 100 mg tablet of ritonavir twice daily for 5 days. GFR >60, creatinine 0.80, day 4 of Covid-19 symptoms;Stop rosuvastatin when taking Paxlovid; take a 50% dose of alprazolam while taking Paxlovid;Monitor your blood pressure, stop amlodipine if your blood pressure gets too low. benzonatate 200 mg capsule 200 mg PO TID PRN (Reason: cough) Qty: 30 0RF Referrals: Lo Hall PA-C [Primary Care Provider] - Stand Alone Forms: Patient Portal/API
== END 2023-08-08 10:28 | disposition home or self-care (01) ==
PROVIDERS: Emergency Provider Emergency Medicine; PCP Student in an Organized Health Care Education/Training Program
DX: U07.1 COVID-19 (principal)
CPT/HCPCS: 99281; 99283

== ENCOUNTER → 2024-05-03 13:59 | Outpatient (CLI) | payer MEDICARE, SELFPAY ==
--- NOTE | 2024-05-03 13:59 | DI.MG.S_ITS ---
BILATERAL DIGITAL SCREENING MAMMOGRAM 3D/2D WITH CAD: 05/03/2024 CLINICAL: Routine screening. Comparison is made to exams dated: 04/29/2023 mammogram, 04/10/2022 mammogram, and 04/08/2021 mammogram - . The breasts are heterogeneously dense, which may obscure small masses (category c / 51-75% glandular tissue). Current study was also evaluated with a Computer Aided Detection (CAD) system. There are benign calcifications in both breasts. There also are benign vascular calcifications in both breasts. Additionally, there is a biopsy clip in the right breast. No significant masses, calcifications, or other findings are seen in either breast. There has been no significant interval change. IMPRESSION: BENIGN There is no mammographic evidence of malignancy. A 1 year screening mammogram is recommended. Based on the Tyrer Cuzick model (a risk assessment model) the patient's lifetime risk is 1.2% and her 10 year risk is 0.0%. According to the ACR, ACS, and NCCN guidelines, an annual breast MRI exam along with mammogram is recommended if the patient's lifetime risk is 20% or greater. This exam was interpreted at Station ID: [id number]. NOTE: For mammograms, a report in lay terms will be sent to the patient. Approximately 15% of breast malignancies will not be visualized mammographically. In the management of a palpable breast mass, a negative mammogram must not discourage biopsy of a clinically suspicious lesion. Electronically Signed By: Laura barbour/eris:05/03/2024 19:42:09 letter sent: Normal Exam ACR BI-RADS Category 2: Benign
== END ==
LOC: MAMMO 13:59
PROVIDERS: PCP Student in an Organized Health Care Education/Training Program; Referring Provider Student in an Organized Health Care Education/Training Program; Visit Provider Student in an Organized Health Care Education/Training Program
DX: Z12.31 Encounter for screening mammogram for malignant neoplasm of breast (principal); R92.333 Mammographic heterogeneous density, bilateral breasts
CPT/HCPCS: 77063; 77067

== ENCOUNTER → 2025-05-29 13:48 | Outpatient (CLI) | payer MEDICARE, SELFPAY ==
--- NOTE | 2025-05-29 13:50 | DI.MG.S_ITS ---
MM screening mammo BI: 05/29/2025. BI-RADS: 0 CLINICAL: 84-year old female for bilateral screening mammogram. Tyrer-Cuzick lifetime risk of 0.6%. No personal or first-degree family history of breast cancer. The patient had a prior left breast biopsy. PRIOR EXAMS 05/03/2024, 04/29/2023, 04/10/2022, 04/08/2021, MAMMOGRAPHY TECHNIQUE: 2D and 3D (tomosynthesis) digital mammographic views obtained, with additional images as needed for full coverage. Current study was also evaluated with a Computer Aided Detection (CAD) system. DENSITY C. The breasts are heterogeneously dense, which may obscure small masses. MAMMOGRAPHY FINDINGS Right: Benign-appearing calcifications noted on the right. There are no suspicious masses, calcifications, or other findings in the breast. Left: Inner at 9:00, Middle depth: Focal asymmetry needing additional imaging evaluation. Left: Benign-appearing calcifications noted on the left. IMPRESSION: Right * No evidence of malignancy with benign findings. Left (Asymmetry): Inner at 9:00, Middle depth * Incomplete - focal asymmetry needing additional imaging evaluation. RECOMMENDATIONS Left: Inner at 9:00, Middle depth * Further evaluation with diagnostic mammography and diagnostic ultrasound. Ultrasound to be performed only if needed. OVERALL ASSESSMENT CATEGORY BI-RADS-0: Incomplete - Need Additional Imaging Evaluation. ELECTRONICALLY SIGNED: Pancho Antonio M.D. on 05/30/2025 at 11:16:51 AM PT Interpreting Station ID: [id number]
== END ==
PROVIDERS: PCP Physician Assistant; Referring Provider Physician Assistant; Visit Provider Physician Assistant
DX: Z12.31 Encounter for screening mammogram for malignant neoplasm of breast (principal); R92.8 Other abnormal and inconclusive findings on diagnostic imaging of breast; R92.1 Mammographic calcification found on diagnostic imaging of breast; R92.333 Mammographic heterogeneous density, bilateral breasts
CPT/HCPCS: 77063; 77067

== ENCOUNTER → 2025-07-02 10:19 | Outpatient (CLI) | payer MEDICARE, SELFPAY ==
--- NOTE | 2025-07-02 10:20 | DI.MG.S_ITS ---
MM diagnostic mammo unilat LT, US breast LT limited: 07/02/2025 BI-RADS: 3 CLINICAL: 84-year old female for left diagnostic mammogram and left diagnostic breast ultrasound that is a recall from screening on 05/29/2025. Tyrer-Cuzick lifetime risk of 0.6%. No personal or first-degree family history of breast cancer. The patient had a prior left breast biopsy. PRIOR EXAMS 05/29/2025, 05/03/2024, 04/29/2023, 04/10/2022, 04/08/2021. MAMMOGRAPHY TECHNIQUE: 2D and 3D (tomosynthesis) digital mammographic views obtained, with additional images as needed for full coverage. Current study was also evaluated with a Computer Aided Detection (CAD) system. ULTRASOUND TECHNIQUE TARGETED Left Breast Ultrasound: Real-time ultrasound exam was performed focused to area of clinical and/or imaging concern. Real-time camacho scale imaging of the area of clinical interest was performed with image documentation. DENSITY Left: C. The breast is heterogeneously dense, which may obscure small masses. MAMMOGRAPHY FINDINGS Left: Inner at 9:00, Middle depth, measuring 0.4cm: Correlating with findings on screening mammogram, there is a focal asymmetry present. There are coarse calcifications associated with the oval, equal-density focal asymmetry. 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 ULTRASOUND FINDINGS Left: Inner at 9:00, 4 cm from nipple: There is no sonographic abnormality to account for imaging concern on mammography. Left: Upper Inner at 10:00, 4 cm from nipple: There is no sonographic abnormality to account for imaging concern on mammography. IMPRESSION: Left (Asymmetry): Inner at 9:00, Middle depth, measuring 0.4cm * Probably Benign. RECOMMENDATIONS Left: Inner at 9:00, Middle depth * Six month followup with diagnostic mammography and diagnostic ultrasound. Ultrasound to be performed only if needed. COMMENTS: Findings and recommendations were conveyed to the patient during today's evaluation. OVERALL ASSESSMENT CATEGORY BI-RADS-3: Probably Benign. ELECTRONICALLY SIGNED: Sneha Cao M.D. on 07/02/2025 at 12:01:27 PM PT Interpreting Station ID: [id number]
== END ==
LOC: MAMMO 10:19
PROVIDERS: PCP Physician Assistant; Referring Provider Physician Assistant; Visit Provider Physician Assistant
DX: R92.8 Other abnormal and inconclusive findings on diagnostic imaging of breast (principal); N64.89 Other specified disorders of breast; R92.332 Mammographic heterogeneous density, left breast
CPT/HCPCS: 76642; 77065; G0279